=== PATIENT | female | born 1980 | race Caucasian/White ===

== ENCOUNTER 2020-01-14 13:18 | Outpatient (CLI) | payer BC, SELFPAY ==
--- NOTE | ~2020-01-14 | MMUS_ITS ---
EXAMINATION: MM diagnostic linda BI w shivam, US breast BI complete HISTORY: Palpable right axillary lump. TECHNIQUE: Additional 3-D tomosynthesis images of the breasts were performed and synthetic 2-D images were generated. CAD analysis was submitted and interpreted. High resolution complete bilateral breas t and bilateral axillary ultrasound was performed. COMPARISON: None BREAST PARENCHYMAL COMPOSITION: The breasts are heterogenously dense, which may obscure small masses. FINDINGS: MAMMOGRAPHIC FINDINGS: There are no suspicious masses, calcifications or architectural distortion in either breast to sugges t malignancy. ULTRASOUND: Complete bilateral breast and axillary ultrasound: There are abnormally enlarged right axillary lymph nodes with effacement of the fatty hilum the largest lymph node measures 4.6 x 3.8 x 3 cm. Bilateral breast ultrasound is within normal limits without focal mass. IMPRESSION: 1. Abnormal enlarged right axillary lymph nodes with effaced fatty hilum. Findings suspicious for mal ignancy. Cannot exclude lymphoma. 2. Ultrasound-guided right axillary lymph node biopsy recommended. BI-RADS category 4, suspicious findings. Reviewed, dictated and finalized at location A. RVISOR DRYING IMPRESSION: 1. Abnormal enlarged right axillary lymph nodes with effaced fatty hilum. Findi ngs suspicious for malignancy. Cannot exclude lymphoma. 2. Ultrasound-guided right axillary lymph node biopsy recommended. BI-RADS category 4, suspicious findings.
== END 2020-01-14 13:19 | disposition home or self-care (01) ==
LOC: ANHIMG 13:21
PROVIDERS: PCP Family Medicine Adolescent Medicine; Visit Provider Obstetrics & Gynecology Gynecology
DX: R92.8 Other abnormal and inconclusive findings on diagnostic imaging of breast (principal)
CPT/HCPCS: 76641; 77062; 77066; G0279

== ENCOUNTER 2020-01-19 11:12 | Outpatient (CLI) | payer BC, SELFPAY ==
--- NOTE | ~2020-01-19 | US_ITS ---
EXAMINATION: US biopsy lymph node DATE: 01/19/2020 12:02 INDICATION: Enlarged right axillary lymph node TECHNIQUE: The procedure including the risks and benefits was discussed with the patient. Risks discu ssed included bleeding and infection. The patient understood the risks and agreed to proceed. The sk in overlying the right axilla was prepped and draped in usual sterile fashion. Anesthetic was admini stered with 1% lidocaine subcutaneously. An 14 gauge core biopsy needle was advanced under continuou s ultrasound observation to the lesion of interest. 6 core biopsy specimens were obtained, 2 placed in formalin and 4 in HPMI media. The needle was removed and the entry site was cleaned and dressed. Post procedure ultrasound demonstrated no hemorrhage. FINDINGS: Ultrasound images demonstrate a 3.9 x 3.4 x 3.0 cm hypoechoic lymph node at the right axill a. Subsequent images dense biopsy needle advanced into the lymph node. IMPRESSION: 1. Successful Ultrasound-guided biopsy of a 3.9 cm right axillary lymph node. Reviewed, dictated and finalized at location A. OWNER OPERATOR
== END 2020-01-19 11:13 | disposition home or self-care (01) ==
LOC: ANHIMG 11:14
PROVIDERS: PCP Family Medicine Adolescent Medicine; Visit Provider Surgery
DX: R93.89 Abnormal findings on diagnostic imaging of other specified body structures (principal); R59.0 Localized enlarged lymph nodes; C77.9 Secondary and unspecified malignant neoplasm of lymph node, unspecified
CPT/HCPCS: 38505; 76942; 88305; 88342; 88365

== ENCOUNTER 2020-01-25 14:48 | Outpatient (CLI) | payer BC, SELFPAY ==
[2020-01-25 15:00] LABS: Basophils Percent Auto 0.2 % (0.2-1.2); Eosinophils Absolute Auto 0.1 K/mm3 (0-0.3); Eosinophils Percent Auto 0.5 % (0-4.4); Hematocrit 35.7 % (37.0-47.0); Hemoglobin 11.7 g/dL (12.0-15.0); Immature Granulocyte Absolute 0.05 K/mm3 (0.00-0.031); Immature Granulocyte Percent A 0.4 % (0-0.5); Lymphocytes Absolute Auto 2.49 K/mm3 (0.9-3.2); Mean Corpuscular HGB Conc 32.8 g/dl (32-36); Mean Corpuscular Hemoglobin 28.9 pg (26-34); Mean Corpuscular Volume 88.1 fl (80-100); Mean Platelet Volume 10.3 fl (7.4-10.4); Monocytes Absolute Auto 0.5 K/mm3 (0.1-0.6); Monocytes Percent Auto 3.4 % (2.6-8.5); Neutrophils Percent Auto 76.5 % (45.5-73.1); Platelet Count Result 361 k/mm3 (150-375); Red Blood Count 4.05 M/mm3 (4.2-5.4); Red Cell Distribution Width 12.7 % (11.5-14.5); White Blood Count 13.1 K/mm3 (4.5-10.0)
[2020-01-25 16:43] LABS: Alanine Aminotransferase 18 U/L (4-35); Albumin Level 4.8 g/dL (3.5-5.1); Alkaline Phosphatase 87 U/L (38-126); Anion Gap 11 mmol/L (8-16); Aspartate Amino Transferase 23 U/L (14-36); Bilirubin,Total 0.3 mg/dL (0.2-1.3); Blood Urea Nitrogen 11 mg/dL (7-17); Calcium 10.4 mg/dL (8.4-10.2); Carbon Dioxide 27 mmol/L (22-30); Chloride 104 mmol/L (98-107); Estimated Glomerular Filt Rate > 60; Glucose 112 mg/dL (65-105); Sodium 142 mmol/L (137-145)
[2020-02-01 06:58] LABS: CA 15-3 23 U/mL (<32)
== END 2020-01-25 14:49 | disposition home or self-care (01) ==
LOC: ANHLAB 14:50
PROVIDERS: PCP Family Medicine Adolescent Medicine; Visit Provider Internal Medicine Hematology & Oncology
DX: C50.911 Malignant neoplasm of unspecified site of right female breast (principal); Z17.0 Estrogen receptor positive status [ER+]
CPT/HCPCS: 36415; 80053; 85025; 86300

== ENCOUNTER 2020-02-18 06:57 | Outpatient (NON) | payer BC, SELFPAY ==
[2020-02-18 18:46] LABS: SARS-CoV-2 RNA PCR Negative
== END 2020-02-18 06:58 ==
LOC: ANHCOVIDDT 07:09
DX: C79.81 Secondary malignant neoplasm of breast (principal); Z20.828 Contact with and (suspected) exposure to other viral communicable diseases
CPT/HCPCS: 87635; C9803; U0003

== ENCOUNTER 2020-02-23 08:35 | Outpatient (CLI) | payer BC, SELFPAY ==
--- NOTE | 2020-02-23 | ECHO_ITS ---
Patient Info Name: Raven Blood Age: 39 years : 1980 Gender: Female Ht: 64 in Wt: 149 lbs BSA: 1.76 m2 HR: 73 bpm BP: 124 / 84 mmHg Heart Rhythm: Sinus Rhythm Technical Quality: Good Exam Date: 02/23/2020 9:18 AM Exam Location: [facility] Pulmonary Patient Status: Outpatient Admit Date: 02/23/2020 Staff Ordering Physician: Francis Rosado MD [employer]ident Responder: Gavin Mathias RDCS Attending Provider: Francis Rosado MD Referring Physician: Ashlee RIZO; Exam Type: CA echo doppler color flow Study Info Indications C50.911 - Malignant neoplasm of unspecified site of right female breast Complete two-dimensional, color flow and Doppler transthoracic echocardiogram is performed. Strain analysis performed. Summary 1. Complete two-dimensional, color flow and Doppler transthoracic echocardiogram is performed. 2. Strain analysis performed. 3. Left ventricular chamber dimension is normal. 4. Left ventricular systolic function is normal, estimated at 60-65%. 5. There is no increased left ventricular wall thickness. 6. Left ventricular septal wall motion is normal. 7. The left ventricular diastolic function is normal. 8. Global longitudinal strain is normal at -19 %. 9. There is mild tricuspid valve regurgitation. Left Ventricle Left ventricular chamber dimension is normal. Left ventricular systolic function is normal, estimated at 60-65%. There is no increased left ventricular wall thickness. Left ventricular septal wall motion is normal. The left ventricular diastolic function is normal. Global longitudinal strain is normal at -19 %. Right Ventricle Right ventricular chamber dimension is normal. Right ventricular systolic function is normal. Left Atria Left atrial chamber dimension is normal. Right Atria Right atrial chamber dimension is normal. Atrial Septum Intact interatrial septum visualized by color flow imaging. Aortic Valve The aortic valve is trileaflet. There is mild aortic valve sclerosis. There is no aortic valve stenosis. There is trace aortic valve regurgitation. Pulmonic Valve The pulmonic valve is normal. There is no pulmonic valve stenosis. There is trace pulmonic regurgitation. Mitral Valve The mitral valve has normal leaflets. There is no mitral valve stenosis. There is trace mitral valve regurgitation. Tricuspid Valve The tricuspid valve leaflets are normal. There is no significant tricuspid valve stenosis. There is mild tricuspid valve regurgitation. Pericardium/Pleural The pericardium appears normal. There is no pericardial effusion. Inferior Vena Cava Normal inferior vena cava with <50% collapse upon inspiration consistent with elevated right atrial pressure, 10 mmHg. Aorta The aortic root size at the sinus of Valsalva is normal. The prox ascending aorta size is normal. Left Ventricular Outflow Tract Name Value Normal LVOT 2D LVOT Diameter 2.0 cm LVOT Doppler LVOT Peak Gradient 3 mmHg LVOT Mean Gradient 2 mmHg LVOT VTI 20 cm
== END 2020-02-23 08:36 | disposition home or self-care (01) ==
PROVIDERS: PCP Family Medicine Adolescent Medicine; Visit Provider Internal Medicine Hematology & Oncology
DX: C50.911 Malignant neoplasm of unspecified site of right female breast (principal); Z17.0 Estrogen receptor positive status [ER+]
CPT/HCPCS: 93306

== ENCOUNTER 2020-03-27 12:33 | Outpatient (NON) | payer BC, SELFPAY ==
[2020-03-27 21:25] LABS: SARS-CoV-2 RNA PCR Positive
== END 2020-03-27 12:34 ==
LOC: ANHCOVIDDT 12:34
PROVIDERS: PCP Family Medicine Adolescent Medicine; Visit Provider Family Medicine Adolescent Medicine
DX: U07.1 COVID-19 (principal)
CPT/HCPCS: C9803; U0003; U0005

== ENCOUNTER → 2020-07-22 06:38 | Outpatient (CLI) | payer BC, SELFPAY ==
[2020-07-22 23:32] LABS: SARS-CoV-2 RNA PCR Negative
== END ==
PROVIDERS: PCP Family Medicine Adolescent Medicine
DX: C50.811 Malignant neoplasm of overlapping sites of right female breast (principal); Z17.0 Estrogen receptor positive status [ER+]; R68.89 Other general symptoms and signs; Z20.822 Contact with and (suspected) exposure to COVID-19
CPT/HCPCS: C9803; U0003; U0005

== ENCOUNTER → 2020-09-28 11:57 | Outpatient (CLI) | payer BC, SELFPAY ==
--- NOTE | ~2020-09-28 | XR_ITS ---
EXAMINATION: XR abdomen/kub 1V EXAM DATE: 09/28/2020 12:37 INDICATION: Left flank pain. TECHNIQUE: Frontal projection(s) of the abdomen for interpretation. There is no prior study for percy quintanilla. FINDINGS: There is a stone projecting over the left renal pelvis measuring about 8 mm. There is exp ected amount of colonic stool and gas. No small bowel dilation, nonobstructive bowel gas pattern. Mild lumbar levoscoliosis. IMPRESSION: Left nephrolithiasis projecting over renal pelvis. Reviewed, dictated and finalized at location A.
== END ==
PROVIDERS: Visit Provider Nurse Practitioner Family
DX: N20.0 Calculus of kidney (principal)
CPT/HCPCS: 74018

== ENCOUNTER 2020-10-09 11:15 | Emergency (ER) | payer BC, SELFPAY ==
[2020-10-09 11:25] VITALS: BP 134/74; PULSE 106; RESP 16; TEMP 36.3; O2SAT 100
--- NOTE | 2020-10-09 11:42 | ED.URI ---
HPI - URI/Sore Throat General Chief Complaint: Upper Respiratory Infection Stated Complaint: Sore throat Time Seen by Provider: 10/09/20 11:43 Source: patient and RN notes reviewed Mode of arrival: ambulatory Limitations: no limitations History of Present Illness HPI Narrative: 40-year-old female presents with concern for sore throat, rhinorrhea for 3 days. She denies fever, chills, headache, body aches, nasal congestion. Reports occasional cough. Reports she is currently undergoing radiation treatment for breast cancer and was told that sore throat could be a side effect. Reports she has been taking DayQuil and NyQuil with some relief MD elicited complaint: sore throat Related Data Home Medications Medication Instructions Recorded Confirmed cholecalciferol (vitamin D3) 250 250 mcg PO WEEKLY 01/17/20 10/09/20 mcg (10,000 unit) capsule Allergies Allergy/AdvReac Type Severity Reaction Status Date / Time codeine Allergy Severe NAUSEA Verified 10/09/20 11:51 Penicillins AdvReac Intermediate LEGS NUMB Verified 10/09/20 11:51 Review of Systems Review of Systems: CONSTITUTIONAL: Denies malaise, chills, sweats, or fever. EYES: Denies visual changes, redness, or discharge. ENT: Denies congestion, sinus pain, otalgia. Reports rhinorrhea and and sore throat. CARDIOVASCULAR: Denies chest pain, palpitations, or edema. RESPIRATORY: Reports occasional cough. Denies dyspnea. GASTROINTESTINAL: Denies abdominal pain, nausea, vomiting, diarrhea SKIN: Denies rash or itching. MUSCULOSKELETAL: Denies myalgia. NEUROLOGIC: Denies headache. All systems reviewed & are unremarkable except as noted in HPI and below PMFSH Past Medical History Medical History (Updated 10/09/20 @ 11:58 by Jayla Ni NP) History of cervical cancer Hypertension Surgical History Surgical History History of delivery History of hysterectomy Family History Family History (Updated 02/16/20 @ 10:52 by Flakito Lockhart MD) Father Malignant neoplasm of prostate Hypertension Other Carcinoma of colon Maternal Uncle Other Breast cancer Paternal Aunt Grandparent Pancreatic cancer Social History Social History (Updated 01/18/20 @ 09:22 by Elli Coughlin [facility]) Smoking status: Never smoker Alcohol intake: current Alcohol use details: rare Substance use: unknown Additional occupation/education comments: Teacher Gender identity (if verbalized by the patient): Female Spiritual care concerns: No Comments At time of signature, agree with nursing past medical, surgical, social and family history. There is no relevant family history pertinent to the presenting complaint Exam Narrative: GENERAL: Well-appearing, well-nourished, and in no acute distress. HEAD: Normocephalic EYES: PERRLA, conjunctivae clear ENT: Nares clear, clear discharge. Mucous membranes moist. TM pearly thomson with sharp light reflex bilaterally; no tragal tenderness. Oropharynx not erythematous without lesions. Tonsils not enlarged and without exudate, no drooling, no hoarseness, no trismus, uvula midline. NECK: Supple. No lymphadenopathy CHEST: Clear to auscultation, breath sounds equal. No wheezing, rhonchi, rales, or stridor. No respiratory distress, speaks in full sentences. HEART: Regular rate and rhythm. No murmur heard. SKIN: Warm, dry, no rash. NEURO: Alert and oriented x3. PSYCH: Normal mood and affect Course Course Emergency Course: Patient is aware of diagnosis, understands and agrees to treatment plan. Anticipatory guidance given. Patient agrees to follow-up as directed and is aware of reasons to seek care at the emergency department. Portions of this record may have been created with voice recognition software Vital Signs Vital signs: Vital Signs Temperature 97.3 F L 10/09/20 11:25 Pulse Rate 106 H 10/09/20 11:25 Respiratory Rate 16 10/09/20 11:25
== END 2020-10-09 12:08 | disposition home or self-care (01) ==
PROVIDERS: Emergency Provider Nurse Practitioner; PCP Family Medicine Adolescent Medicine
DX: J02.9 Acute pharyngitis, unspecified (principal); I10 Essential (primary) hypertension; Z85.41 Personal history of malignant neoplasm of cervix uteri
CPT/HCPCS: 87081; 87880; 99213; G0463

== ENCOUNTER 2020-10-10 07:35 | Outpatient (CLI) | payer BC, SELFPAY ==
[2020-10-10 08:14] LABS: Prothrombin Time 12.6 Seconds (11.1-14.7)
[2020-10-10 08:15] LABS: Partial Thromboplastin Time 27.7 SECONDS (22.3-36.8)
== END 2020-10-10 07:36 | disposition home or self-care (01) ==
PROVIDERS: PCP Family Medicine Adolescent Medicine; Visit Provider Urology
DX: Z01.812 Encounter for preprocedural laboratory examination (principal); N20.0 Calculus of kidney
CPT/HCPCS: 36415; 85610; 85730; 87086; 87088

== ENCOUNTER 2020-10-20 01:57 | Day surgery (SDC) | payer BC, SELFPAY ==
[2020-10-09 14:48] VITALS: BMI 28.8
[2020-10-20] VITALS (8 sets, daily range): BP systolic 124–142; BP diastolic 57–79; PULSE 80–114; RESP 10–20; TEMP 36.9–37.4; O2SAT 99–100
--- NOTE | ~2020-10-20 | XR_ITS ---
XR abdomen/kub 1V DATE: 10/20/2020 06:46 INDICATION: Left renal pelvic stone TECHNIQUE: AP projection, 2 views COMPARISON: 09/28/2020 KUB FINDINGS: Again noted is an 8 mm calcification overlying the left renal pelvis. A pinpoint calcificat ion overlies the lower pole left kidney suggesting a very small nonobstructing lower pole left renal calculus. The psoas shadows are intact. No visceromegaly is evident. There is a prominent of fecal material wit hin the colon but no bowel obstruction is detected. Included skeletal structures are unremarkable other than levoscoliosis of the thoracolumbar spine. IMPRESSION: 8 mm calcified left renal pelvic calculus Pinpoint nonobstructing lower pole left renal calculus Reviewed, dictated and finalized at Location A. Reviewed, dictated and finalized at location A.
--- NOTE | 2020-10-20 06:17 | WPDHPUPDATE1 ---
History and Physical Update Update Date/Time: 10/20/20 06:17 History and Physical has been reviewed, including an updated exam of the patient. There are NO changes in the patient's condition. Risks, benefits, and alternatives have been discussed and questions answered. Patient agrees to proceed with procedure.
--- NOTE | 2020-10-20 07:21 | WPDANESEPP ---
Anes - Eval Pre Procedure Procedure: Operation Date: 10/20/20 08:30 Proposed Procedures p Left Renal Extracorporeal Shock Wave Lithotripsy, Possible Left Stent Placement - Fam Kaiser MD Date/Time: 10/20/20 07:21 Pre Op Diagnosis: Left Renal Stone Patient Data Age: 40 Gender: F Height: 1.63 m Weight: 76 kg Allergies Allergy/AdvReac Type Severity Reaction Status Date / Time codeine Allergy Severe NAUSEA Verified 10/20/20 07:16 Penicillins AdvReac Intermediate LEGS NUMB Verified 10/20/20 07:16 Home Medications Medication Instructions Recorded Confirmed Type cholecalciferol (vitamin D3) 250 250 mcg PO WEEKLY 01/17/20 10/20/20 History mcg (10,000 unit) capsule tamoxifen 20 mg PO DAILY 10/20/20 10/20/20 History Patient hx anesthesia problems: post op nausea/vomiting Family hx anesthesia problems: none PMFSH Past Medical History Medical History History of cervical cancer Hypertension Surgical History Surgical History History of delivery History of hysterectomy Family History Family History Father Malignant neoplasm of prostate Hypertension Other Carcinoma of colon Maternal Uncle Other Breast cancer Paternal Aunt Grandparent Pancreatic cancer Social History Social History (Updated 01/18/20 @ 09:22 by Elli Coughlin [facility]) Smoking status: Never smoker Alcohol intake: never Alcohol use details: rare Substance use: never Living arrangements: with family Additional occupation/education comments: Teacher Gender identity (if verbalized by the patient): Female Spiritual care concerns: No Exam Day of Procedure 10/20/20 07:21 Patient weight: overweight Heart: regular rate and rhythm Lungs: clear to auscultation and normal air movement Airway: Mallampati scale class II Neurological: alert and oriented Other findings: PONV
--- NOTE | 2020-10-20 07:36 | WPDANESEFPP ---
Anes - Eval Final PreProcedure Day of Procedure 10/20/20 07:36 Patient weight: overweight Heart: regular rate and rhythm Lungs: clear to auscultation Airway: Mallampati scale class II Neurological: alert and oriented Last oral intake: >/= 8 hours ASA classification: III Emergent: no Anesthetic plan: proceed Anesthesia type and monitoring: general LMA and standard monitoring Informed Consent: The patient's anesthetic plan and its attendant risks and benefits were discussed with the patient/family/POA. Questions were solicited and answers provided to the satisfaction of the patient/family/POA.
[2020-10-20] MEDS: ceFAZolin 2 GM/D5W 50 ML 2 GM/50 ML BAG IVPB (07:50)
--- NOTE | 2020-10-20 08:12 | W.PM.PROC2 ---
Procedure Note - Detailed Date of Procedure 10/20/20 Pre-op Diagnosis Left Renal Stone Post-op Diagnosis same Procedure Performed Left ESWL Surgeon Fam Kaiser MD Anesthesia general Description of Procedure The patient was brought to the operative suite where she was placed in the supine position on the Dornier lithotripsy table. The focal point of the lithotripter was placed at a 8mm left renal calculus. A total of 2500 shocks were delivered at a power setting of 4. There appeared to be good fragmentation of the stone. The patient tolerated the procedure well and was taken to the recovery room in good condition. Estimated Blood Loss 0 Drains No Packing No Pathology none sent Complications No immediate complications Condition stable Disposition PACU
[2020-10-20] MEDS: LACTATED RINGERS 1,000 ML 30 ML IV CONT (08:19)
== END 2020-10-20 10:15 | disposition home or self-care (01) ==
PROVIDERS: PCP Family Medicine Adolescent Medicine; Visit Provider Urology
PROC: (CPT 50590; principal; 2020-10-20 08:30)
DX: N20.0 Calculus of kidney (principal); I10 Essential (primary) hypertension
CPT/HCPCS: 50590; 36415; 74018; 85610; 85730; 87086; 87088; A9270; J0131; J0690; J1100; J2250; J2405; J2704; J3010; J7120

== ENCOUNTER → 2020-11-03 13:18 | Outpatient (CLI) | payer BC, SELFPAY ==
--- NOTE | ~2020-11-03 | XR_ITS ---
XR abdomen/kub 1V DATE: 11/03/2020 13:56 INDICATION: Left flank pain TECHNIQUE: AP projection, 2 views COMPARISON: 10/20/2020 KUB FINDINGS: No urinary tract calcification is evident. The psoas shadows are intact. No visceromegaly i s detected. There is no evidence of bowel obstruction. IMPRESSION: No significant abnormality Reviewed, dictated and finalized at Location A. Reviewed, dictated and finalized at location A. IMPRESSION: No significant abnormality
== END ==
PROVIDERS: PCP Family Medicine Adolescent Medicine; Visit Provider Nurse Practitioner Family
DX: R10.9 Unspecified abdominal pain (principal)
CPT/HCPCS: 74018

== ENCOUNTER → 2020-11-25 00:19 | Outpatient (CLI) | payer BC, SELFPAY ==
[2020-11-25 18:09] LABS: SARS-CoV-2 RNA PCR Negative
== END ==
PROVIDERS: PCP Family Medicine Adolescent Medicine
DX: Z20.822 Contact with and (suspected) exposure to COVID-19 (principal)
CPT/HCPCS: C9803; U0003; U0005

== ENCOUNTER 2021-01-22 01:49 | Day surgery (SDC) | payer BC, SELFPAY ==
[2021-01-17 15:21] VITALS: BMI 26.1
--- NOTE | 2021-01-17 15:29 | PC.NURSE ---
Report to the Outpatient Waiting Room, entrance under the green pavilion located off [facility], at time 0600 on date 01/22/21. OR Time: 0730. - You and your visitor will be asked a series of questions to screen for COVID 19 for your protection. - A mask is required within the hospital. - Only one visitor is allowed at this time. Patient visitors will be guided where to wait when not with patient. Preoperative COVID Testing Requirements: No COVID Test needed if: (proof is required; if not received patient will have Rapid Test prior to entry) - Patient has received COVID Vaccine at least 14 days prior to procedure date or - Patient has positive COVID test result within last 90 days of surgery date. COVID Test needed if above criteria is not met If not COVID vaccinated a COVID test must be conducted within 72 hours of surgery and patient is asked to isolate self from time of testing until procedure. You will go to the [facility] for your COVID testing. The [facility] is located at the corner of [address] [facility]. You will only be called if COVID results are positive and your surgeon may reschedule your elective surgery date. Patients may have clear liquids (water, carbonated beverages, clear teas, apple juice) until 3 hours prior to surgery with a maximum of 20 ounces. - No food from midnight until time of surgery - Infants may have breast milk until 4 hours before surgery, infant formula 6 hours prior to surgery. - Children will be allowed to drink immediately following surgery. If applicable, please bring a bottle or sippy cup to assist with drinking. Juice, water, soda, and popsicles are readily available. For infants on formula, please bring formula the day of surgery. Pacifiers are allowed. Take the following medications with a SIP of water the morning of surgery: N/A Medications to discontinue per physician: ASPIRIN PER DR. RANGEL, VITAMINS/SUPPLEMENTS 01/18/21 Please no make-up, nail bengali, hairspray, perfume, deodorant, or body powder the day of surgery. No jewelry (including any body piercings) or valuables the day of surgery, leave them at home. Please take a shower or bath the night before, or the morning of, surgery with an antibacterial soap. Wear comfortable, loose fitting clothing. Children are encouraged to wear pajamas. - Jewelry must be removed prior to entering the operating room. Rings and piercings that are not removed may be cut off. - The hospital will not accept responsibility for valuables. - Please leave all valuables, including medications, at home the day of surgery. If you are going home after surgery, a licensed belly dump driver must drive you home. - NO public transportation without another adult. - We recommend that an adult stay with you for 24 hours following discharge. - We also recommend that you do not drive, make important decision, drink alcoholic beverages, or take any drugs that were not prescribed by your health care provider for at least 24 hours after your discharge time. For Pediatric surgeries, we recommend two adults accompany the child home (only one inside the building at this time). Follow any additional instructions given to you from your surgeon. Telephone instructions given to CARLOS HORTON and asked if any additional questions and then verbalized understanding. Patient advised to call surgeon office or pre surgery nurse liaison [phone] if any additional questions.
[2021-01-22] VITALS (9 sets, daily range): BP systolic 118–144; BP diastolic 59–73; PULSE 88–118; RESP 12–20; TEMP 36.6–36.9; O2SAT 99–100
--- NOTE | 2021-01-22 06:01 | ECG_ITS ---
Measurements Intervals [place] Rate: 105 P: 64 CO: 121 QRS: 13 QRSD: 74 T: 12 QT: 343 QTc: 455 Interpretive Statements SINUS TACHYCARDIA NONSPECIFIC ST & T-WAVE ABNORMALITY- DIFFUSE LEADS BASELINE ARTIFACT- I, II, AVR, AVF ABNORMAL ECG Electronically Signed On 01-22-2021 8:48:08 MILK BOTTLER by Jorge Kemp D.O.
[2021-01-22] MEDS: ACETAMINOPHEN 500 MG TABLET 1000 MG PO (06:53)
[2021-01-22] MEDS: SCOPOLAMINE 1.5 MG PATCH TRANSDERM (06:55)
[2021-01-22] MEDS: KETOROLAC 15 MG/ML VIAL (*BKC) IV PUSH (07:05)
[2021-01-22] MEDS: LACTATED RINGERS 1,000 ML 30 ML IV CONT ×2 (07:07→08:27)
--- NOTE | 2021-01-22 07:14 | WPDHPUPDATE1 ---
History and Physical Update Update Date/Time: 01/22/21 07:14 History and Physical has been reviewed, including an updated exam of the patient. There are NO changes in the patient's condition. Risks, benefits, and alternatives have been discussed and questions answered. Patient agrees to proceed with procedure.
--- NOTE | 2021-01-22 07:15 | P.HP_ITS ---
History of Present Illness History of Present Illness Consent: Risks, benefits, and alternatives have been discussed and questions answered. Patient agrees to proceed with procedure. Chief complaint: prophylactic removal of ovaries Narrative: Raven Blood is a 40 year old female here for bilateral oophorectomy. Patient has diagnosis of stage IIIC breast cancer and oncology has requested bilateral oophorectomy. Risks of infection, bleeding injury to internal organs (bowel, bladder, ureters), need to perform open exploratory, as well as the long-term affects of having her ovaries removed were reviewed with the patient. She voices understanding and agrees to proceed. 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 squamous carcinoma s/p LEEP and cone 2010 and [facility] 2010 Hypertension Surgical History Surgical History (Updated 01/22/21 @ 07:20 by Jaleesa Rivera MD) History of delivery x2 History of hysterectomy [facility] 2016 S/P mastectomy, bilateral 07/28 Family History Family History Father Malignant neoplasm of prostate Hypertension Other Carcinoma of colon Maternal Uncle Other Breast cancer Paternal Aunt Grandparent Pancreatic cancer Social History Social History (Updated 01/18/20 @ 09:22 by Elli Coughlin [facility]) Smoking status: Never smoker Alcohol intake: never Alcohol use details: rare Substance use: never Substance use type: does not use Living arrangements: with family Additional occupation/education comments: Teacher Gender identity (if verbalized by the patient): Female Spiritual care concerns: No Meds Home Medications and Allergies Home Medications Medication Instructions Recorded Confirmed Type cholecalciferol (vitamin D3) 250 250 mcg PO WEEKLY 01/17/20 01/17/21 History mcg (10,000 unit) capsule aspirin [Baby Aspirin] 81 mg PO DAILY 01/17/21 01/17/21 History lisinopril 10 mg PO DAILY 01/17/21 01/17/21 History Allergies Allergy/AdvReac Type Severity Reaction Status Date / Time codeine AdvReac Severe NAUSEA Verified 01/22/21 06:40 Penicillins AdvReac Intermediate LEGS NUMB Verified 01/17/21 15:19 Exam Const: General: healthy appearing and alert Orientation/consciousness: patient oriented x3 Resp: Effort & Inspection: normal respiratory effort Auscultation: clear to auscultation bilaterally Cardio: Rate: regular rate Rhythm: regular rhythm GI: GI Palp: Yes Soft to palpation, No Tenderness to palpation present (GI) and No Palpable mass present : External Female Exam: normal external appearance Speculum Exam - Vagina: normal appearance of the vagina and normal vaginal discharge Bimanual Exam- Adnexa, other: normal adnexae and No adnexal tenderness Neuro: General: patient oriented x3 Assessment and Plan Assessment and plan (1) Breast CA: Code(s): C50.919 - Malignant neoplasm of unspecified site of unspecified female breast Status: Acute Assessment and Plan: Plan to proceed with bilateral oophorectomy
--- NOTE | 2021-01-22 08:24 | W.PM.PROC2 ---
Procedure Note - Detailed Date of Procedure 01/22/21 Pre-op Diagnosis prophylactic removal of ovaries Post-op Diagnosis same Procedure Performed Laparoscopic bilateral oophorectomy Surgeon Jaleesa Rivera MD Anesthesia general Findings Normal-appearing bilateral ovaries; omental adhesions to the mid lower abdominal wall Description of Procedure The patient was taken to the operating room and placed under anesthesia in the dorsal lithotomy position. She was prepped and draped in the usual sterile fashion. Sponge stick was placed in the vagina and the bladder was previously drained by the OR staff. A vertical skin incision is made at the base of the umbilicus. The abdomen is tented and the Veress needle placed with an opening patient pressure of 4mmHg. Water drop test was normal and pneumoperitoneum was obtained to a patient pressure of 15. The Veress needle was removed and the 5mm Optiview trocars placed. Intra-abdominal placement was confirmed with the laparoscope. The patient is placed in Trendelenburg and the 5mm trocar placed 2cm above the symphysis pubis under direct visualization. Blunt probe was used to evaluate the pelvis and both ovaries are able to be mobilized. The 12mm trocar is placed in the left lower quadrant. The Endo GI stapler was used to clamp the infundibulopelvic ligament on the left. The pedicle was cut and the ovary released. Good hemostasis is noted the stapler was re-loaded and to firings were required for the right ovary. One additional piece of scar tissue was cauterized and cut using Metzenbaum. This freed the right ovary. The endobag was placed through the 12mm trocar and both ovaries are placed in the back. The incision had to be extended approximately 1cm to allow removal of the ovaries. Trocars are removed and pneumoperitoneum was reduced. The fascial incision is closed in the 12mm trocar port with 0 Vicryl. The skin incisions are closed using 4-0 nylon in an interrupted fashion. Vaginal instrument was removed and the patient awakened from anesthesia. She was taken to recovery in stable condition. Sponge, needle, and instrument counts are correct per the OR staff. Estimated Blood Loss 5 Drains No Packing No Pathology yes (Bilateral ovaries) Complications No immediate complications Condition stable Disposition PACU
[2021-01-22] MEDS: ONDANSETRON INJ 4 MG/2 ML VIAL IV PUSH (09:57)
== END 2021-01-22 11:00 | disposition home or self-care (01) ==
PROVIDERS: PCP Family Medicine Adolescent Medicine; Visit Provider Obstetrics & Gynecology Gynecology
PROC: (CPT 49320; principal; 2021-01-22 07:30)
DX: Z40.02 Encounter for prophylactic removal of ovary(s) (principal); C50.919 Malignant neoplasm of unspecified site of unspecified female breast; N83.10 Corpus luteum cyst of ovary, unspecified side; N83.00 Follicular cyst of ovary, unspecified side; J45.909 Unspecified asthma, uncomplicated; I10 Essential (primary) hypertension; Z85.41 Personal history of malignant neoplasm of cervix uteri; Z79.82 Long term (current) use of aspirin; R00.0 Tachycardia, unspecified
CPT/HCPCS: 58661; 88305; 93005; A9270; J1100; J1170; J1885; J2250; J2405; J2704; J2710; J3010; J7030; J7120

== ENCOUNTER → 2021-06-04 11:13 | Outpatient (CLI) | payer BC, SELFPAY ==
--- NOTE | ~2021-06-04 | XR_ITS ---
XR abdomen/kub 1V DATE: 06/04/2021 11:39 INDICATION: Left flank pain TECHNIQUE: Supine AP views COMPARISON: 11/03/2020 KUB FINDINGS: The psoas shadows are intact. No visceromegaly. No significant abnormal calcification. There is a moderate amount of fecal material in colon but no evidence of bowel obstruction. Mild levoscoliosis of the lower thoracic and lumbar spine. IMPRESSION: Nonspecific abdomen Reviewed, dictated and finalized at [facility] Reviewed, dictated and finalized at [facility]. IMPRESSION: Nonspecific abdomen
== END ==
PROVIDERS: PCP Urology; Visit Provider Urology
DX: R10.9 Unspecified abdominal pain (principal); M41.9 Scoliosis, unspecified
CPT/HCPCS: 74018

== ENCOUNTER 2021-08-17 14:41 | Emergency (ER) | payer BC, SELFPAY ==
[2021-08-17 14:51] VITALS: BP 111/72; PULSE 116; RESP 18; TEMP 37.1; O2SAT 100
--- NOTE | 2021-08-17 15:02 | ED.FEMALEGU ---
HPI - Female Genitourinary General Chief complaint: Urogenital-Female Stated complaint: uti complaint Time Seen by Provider: 08/17/21 14:55 Source: patient Mode of arrival: ambulatory Limitations: no limitations History of Present Illness HPI Narrative: Ms. Blood is a 40-year-old female patient presenting to the clinic today with complaints of possible UTI. She reports that she is having some right-sided flank pain. She denies any burning frequency urgency with urination however she just had some blood work done and her provider told her that her white count was elevated and her kidney function was a little elevated so she is concerned about a kidney infection. She denies any fever or chills. She denies any known exposure to anybody with COVID, flu, or strep. Related Data Home Medications Medication Instructions Recorded Confirmed lisinopril 10 mg tablet 10 mg PO DAILY 01/17/21 01/22/21 anastrozole 1 mg tablet tablet 08/17/21 Allergies Allergy/AdvReac Type Severity Reaction Status Date / Time codeine AdvReac Severe NAUSEA Verified 08/17/21 15:02 Penicillins AdvReac Intermediate LEGS NUMB Verified 08/17/21 15:02 Review of Systems Review of Systems: Pertinent positives per HPI. Patient denies any fever, chills, rash, headache, visual changes, dizziness, cough, runny nose, sore throat, shortness of breath, chest pain, palpitations, nausea, vomiting, diarrhea, constipation, abdominal pain, or any urinary issues. [facility] Past Medical History Medical History Asthma, exercise induced History of cervical cancer Ia1 squamous carcinoma s/p LEEP and cone 2010 and [facility] 2010 Hypertension Surgical History Surgical History History of delivery x2 History of hysterectomy [facility] 2016 S/P mastectomy, bilateral 07/28 Family History Family History Father Malignant neoplasm of prostate Hypertension Other Carcinoma of colon Maternal Uncle Other Breast cancer Paternal Aunt Grandparent Pancreatic cancer Social History Social History (Reviewed 08/17/21 @ 15:15 by Salvador Huff APRNKp Smoking status: Never smoker Alcohol intake: never Alcohol use details: rare Substance use: never Substance use type: does not use Additional occupation/education comments: Teacher Gender identity (if verbalized by the patient): Female Spiritual care concerns: No Comments At the time of my signature, I reviewed and agree with the nursing past medical, surgical, social, and family history. There is no relevant family history pertinent to the patient complaint. Exam Narrative: General: Well-developed, well nourished, in no apparent distress. Head: Normocephalic, atraumatic. Cardio: Regular rate and rhythm, s1 and s2 normal, no murmur appreciated. Resp: Clear to auscultation bilaterally, no rhonchi, rales, wheezing or rubs. Abdomen: Soft, pliable, bowel sounds present in all quadrants, non-tender to palpation, no organomegly, positive left CVAT tenderness. Course Course Emergency Course: Portions of this record may have been created with voice recognition software. Level of Care: Express Care Visit Vital Signs Vital signs: Vital Signs Temperature 37.1 C 08/17/21 14:51 Pulse Rate 116 H 08/17/21 14:51 Respiratory Rate 18 08/17/21 14:51 Blood Pressure 111/72 08/17/21 14:51 Pulse Oximetry 100 08/17/21 14:51 Oxygen Delivery Room Air 08/17/21 14:51 Temperature 37.1 C 08/17/21 14:51 Pulse Rate 116 H 08/17/21 14:51 Respiratory Rate 18 08/17/21 14:51 Blood Pressure 111/72 08/17/21 14:51 Pulse Oximetry 100 08/17/21 14:51 Oxygen Delivery Room Air 08/17/21 14:51 Vital signs reviewed MDM - Female Genitourinary MDM Narrative Medical decision making tara
== END 2021-08-17 15:08 | disposition home or self-care (01) ==
PROVIDERS: Emergency Provider Nurse Practitioner Family; PCP Family Medicine Adolescent Medicine
DX: R10.9 Unspecified abdominal pain (principal); J45.990 Exercise induced bronchospasm; I10 Essential (primary) hypertension; Z85.41 Personal history of malignant neoplasm of cervix uteri
CPT/HCPCS: 81003; 87086; 87088; 99213; G0463

== ENCOUNTER 2022-01-15 01:07 | Day surgery (SDC) | payer BC, SELFPAY ==
[2022-01-03 11:12] VITALS: BMI 28.0
[2022-01-15 06:59] VITALS: BP 136/85; PULSE 97; RESP 18; TEMP 36.1; O2SAT 100; BMI 28.4
--- NOTE | 2022-01-15 07:05 | WPDANESEPPF ---
Anes - Initial Pre Proc Eval Procedure: Operation Date: 01/15/22 08:00 Proposed Procedures p Screening Colonoscopy - Sotero Mcneal MD Date/Time: 01/15/22 07:05 Surgeon: Sotero Mcneal MD Pre Op Diagnosis: lorenzo screen; fam hx colon ca, pers hx breast cancer Patient Data Age: 41 Gender: F Height: 1.63 m Weight: 75.1 kg Last Vital Signs Temp 36.1 C L 01/15/22 06:59 Pulse 97 01/15/22 06:59 Resp 18 01/15/22 06:59 BP 136/85 01/15/22 06:59 Pulse Ox 100 01/15/22 06:59 O2 Del Method Room Air 01/15/22 06:59 Allergies Allergy/AdvReac Type Severity Reaction Status Date / Time codeine AdvReac Severe NAUSEA Verified 01/15/22 06:58 Penicillins AdvReac Intermediate LEGS NUMB Verified 01/15/22 06:58 Home Medications Medication Instructions Recorded Confirmed Type lisinopril 10 mg tablet 10 mg PO DAILY 01/17/21 01/03/22 History anastrozole 1 mg tablet 1 mg PO DAILY 08/17/21 01/03/22 History atorvastatin 20 mg tablet 20 mg PO DAILY #90 tabs 11/29/21 01/03/22 Rx sodium,potassium,mag sulfates 17.5 See Rx Instructions PO .COMPLEX 12/04/21 01/15/22 Rx gram-3.13 gram-1.6 gram oral soln #354 mL (Suprep Bowel Prep Kit) aspirin 81 mg tablet 81 mg PO DAILY 01/03/22 01/03/22 History glucosamine-chondroitin 250 mg-200 2 tablet PO TID 01/03/22 01/03/22 History mg tablet (Osteo Bi-Flex) multivitamin with minerals-folic 1 tablet PO DAILY 01/03/22 01/03/22 History acid 0.4 mg tablet omega-3 fatty acids-vitamin E 1 cap PO DAILY 01/03/22 01/03/22 History 1,000 mg capsule Patient hx anesthesia problems: post op nausea/vomiting Family hx anesthesia problems: none Results Review: All pre-operative results and documents have been reviewed as part of the pre-operative evaluation. [facility] Past Medical History Medical History Abnormal findings on imaging test Asthma, exercise induced Breast CA Breast calcification, right COVID-19 Enlarged lymph nodes in armpit History of cervical cancer Ia1 squamous carcinoma s/p LEEP and cone 2010 and [facility]- 2010 Hypertension Mixed hyperlipidemia Surgical History Surgical History History of delivery x2 History of hysterectomy [facility] 2016 S/P mastectomy, bilateral 07/28 Family History Family History Father Malignant neoplasm of prostate Hypertension Other Carcinoma of colon Maternal Uncle Other Breast cancer Paternal Aunt Grandparent Pancreatic cancer Social History Social History Smoking status: Never smoker Second hand tobacco smoke exposure: No Alcohol intake: never Alcohol use details: rare Substance use: never Substance use type: does not use Living arrangements: with family Additional occupation/education comments: Teacher Gender identity (if verbalized by the patient): Female Sexual Orientation (if Verbalized by the Patient): Straight or Heterosexual Spiritual care concerns: No Agree to blood products: Yes Anes - Eval Final PreProcedure Day of Procedure 01/15/22 07:05 Patient weight: overweight Heart: regular rate and rhythm Lungs: clear to auscultation Airway: Mallampati scale class II Neurological: alert and oriented Last oral intake: >/= 8 hours ASA classification: III Emergent: no Anesthetic plan: proceed Anesthesia type and monitoring: general GIVS and standard monitoring Results Review: All pre-operative results and documents have been reviewed as part of the pre-operative evaluation. Informed Consent: The patient's anesthetic plan and its attendant risks and benefits were discussed with the patient/family/POA. Questions were solicited and answers provided to the satisfaction of the patient/family/POA.
[2022-01-15] MEDS: LACTATED RINGERS 1,000 ML 150 ML IV CONT (07:13)
--- NOTE | 2022-01-15 07:53 | PM.HPGS ---
History of Present Illness History of Present Illness Consent: Risks, benefits, and alternatives have been discussed and questions answered. Patient agrees to proceed with procedure. Chief complaint: lorenzo screen; fam hx colon ca, pers hx breast cancer Narrative: Raven Blood is a 41 year old female Presents for screening colonoscopy. Patient has a personal history of breast carcinoma for which she has had bilateral mastectomy. She states that her mother and father both have had colon polyps. An uncle has had colon cancer a maternal grandmother had pancreatic cancer. Patient presents today for screening exam. She states her current weight appetite and bowel movements are normal. She denies any blood in her stools. Review of Systems Review of Systems: Review of systems noncontributory. [facility] Past Medical History Medical History Abnormal findings on imaging test Asthma, exercise induced Breast CA Breast calcification, right COVID-19 Enlarged lymph nodes in armpit History of cervical cancer Ia1 squamous carcinoma s/p LEEP and cone 2010 and [facility]- 2010 Hypertension Mixed hyperlipidemia Surgical History Surgical History History of delivery x2 History of hysterectomy [facility]- 2016 S/P mastectomy, bilateral 07/28 Family History Family History Father Malignant neoplasm of prostate Hypertension Other Carcinoma of colon Maternal Uncle Other Breast cancer Paternal Aunt Grandparent Pancreatic cancer Social History Social History Smoking status: Never smoker Second hand tobacco smoke exposure: No Alcohol intake: never Alcohol use details: rare Substance use: never Substance use type: does not use Living arrangements: with family Additional occupation/education comments: Teacher Gender identity (if verbalized by the patient): Female Sexual Orientation (if Verbalized by the Patient): Straight or Heterosexual Spiritual care concerns: No Agree to blood products: Yes Meds Home Medications and Allergies Home Medications Medication Instructions Recorded Confirmed Type lisinopril 10 mg tablet 10 mg PO DAILY 01/17/21 01/03/22 History anastrozole 1 mg tablet 1 mg PO DAILY 08/17/21 01/03/22 History atorvastatin 20 mg tablet 20 mg PO DAILY #90 tabs 11/29/21 01/03/22 Rx sodium,potassium,mag sulfates 17.5 See Rx Instructions PO .COMPLEX 12/04/21 01/15/22 Rx gram-3.13 gram-1.6 gram oral soln #354 mL (Suprep Bowel Prep Kit) aspirin 81 mg tablet 81 mg PO DAILY 01/03/22 01/03/22 History glucosamine-chondroitin 250 mg-200 2 tablet PO TID 01/03/22 01/03/22 History mg tablet (Osteo Bi-Flex) multivitamin with minerals-folic 1 tablet PO DAILY 01/03/22 01/03/22 History acid 0.4 mg tablet omega-3 fatty acids-vitamin E 1 cap PO DAILY 01/03/22 01/03/22 History 1,000 mg capsule Allergies Allergy/AdvReac Type Severity Reaction Status Date / Time codeine AdvReac Severe NAUSEA Verified 01/15/22 06:58 Penicillins AdvReac Intermediate LEGS NUMB Verified 01/15/22 06:58 Vital Signs Vital Signs - 24 hr 01/15/22 06:59 Temperature 97 F L Pulse Rate 97 Respiratory Rate 18 Blood Pressure 136/85 Pulse Oximetry 100 Oxygen Delivery Room Air Exam Narrative: Physical exam reveals patient be alert. Vital signs stable. HEENT exam is unremarkable. Patient is anicteric. Lungs are clear to auscultation and percussion. Heart is without murmur or extra sounds. Abdomen bowel sounds are present soft nontender with no organomegaly. Digital external rectal exam is normal. Assessment and Plan Assessment and plan (1) Family history of colonic polyps: Code(s): Z83.71 - Family history of colonic polyps Status: Acute
[2022-01-15 08:23] VITALS: BP 102/78; PULSE 80; RESP 20; O2SAT 100
[2022-01-15 08:33] VITALS: BP 119/75; PULSE 74; RESP 14; O2SAT 100
[2022-01-15 08:43] VITALS: BP 124/67; PULSE 69; RESP 16; O2SAT 100
== END 2022-01-15 08:46 | disposition home or self-care (01) ==
PROVIDERS: PCP Family Medicine Adolescent Medicine; Visit Provider Internal Medicine Gastroenterology
PROC: 0DJD8ZZ Inspection of Lower Intestinal Tract, Via Natural or Artificial Opening Endoscopic (ICD-10-PCS; CPT 45378; principal; 2022-01-15 08:00)
DX: Z12.11 Encounter for screening for malignant neoplasm of colon (principal); K64.8 Other hemorrhoids; Z83.71 Family history of colonic polyps; Z80.0 Family history of malignant neoplasm of digestive organs; I10 Essential (primary) hypertension; E78.2 Mixed hyperlipidemia; Z85.3 Personal history of malignant neoplasm of breast; Z79.82 Long term (current) use of aspirin; Z79.811 Long term (current) use of aromatase inhibitors; Z85.41 Personal history of malignant neoplasm of cervix uteri; Z90.13 Acquired absence of bilateral breasts and nipples
CPT/HCPCS: 45378; J2704; J7120

== ENCOUNTER 2022-03-02 09:06 | Emergency (ER) | payer BC, SELFPAY ==
--- NOTE | 2022-03-02 09:12 | ED.URI ---
HPI - URI/Sore Throat General Chief Complaint: Upper Respiratory Infection Stated Complaint: Sore Throat Time Seen by Provider: 03/02/22 09:20 Source: patient and RN notes reviewed Mode of arrival: ambulatory Limitations: no limitations History of Present Illness HPI Narrative: 41-year-old female presents concern for sore throat, fever. She reports some mild nasal drainage. Reports symptoms started 3 days ago, she has lost her voice this morning. Reports her child had strep throat last week. She reports painful swallowing. MD elicited complaint: fever and sore throat Related Data Home Medications Medication Instructions Recorded Confirmed lisinopril 10 mg tablet 10 mg PO DAILY 01/17/21 03/02/22 anastrozole 1 mg tablet 1 mg PO DAILY 08/17/21 03/02/22 aspirin 81 mg tablet 81 mg PO DAILY 01/03/22 03/02/22 glucosamine-chondroitin 250 mg-200 2 tablet PO TID 01/03/22 03/02/22 mg tablet (Osteo Bi-Flex) multivitamin with minerals-folic 1 tablet PO DAILY 01/03/22 03/02/22 acid 0.4 mg tablet omega-3 fatty acids-vitamin E 1 cap PO DAILY 01/03/22 03/02/22 1,000 mg capsule Allergies Allergy/AdvReac Type Severity Reaction Status Date / Time codeine AdvReac Severe NAUSEA Verified 03/02/22 09:15 Penicillins AdvReac Intermediate LEGS NUMB Verified 03/02/22 09:15 Review of Systems Review of Systems: CONSTITUTIONAL: Reports malaise, fever. EYES: Denies visual changes, redness, or discharge. ENT: Reports rhinorrhea, sore throat. It has been congestion, sinus pain, otalgia CARDIOVASCULAR: Denies chest pain, palpitations, or edema. RESPIRATORY: Reports occasional cough. Denies dyspnea. GASTROINTESTINAL: Denies abdominal pain, nausea, vomiting, diarrhea SKIN: Denies rash or itching. MUSCULOSKELETAL: Denies myalgia. NEUROLOGIC: Denies headache. All systems reviewed & are unremarkable except as noted in HPI and below PMFSH Past Medical History Medical History Abnormal findings on imaging test Asthma, exercise induced Breast CA Breast calcification, right COVID-19 Enlarged lymph nodes in armpit History of cervical cancer Ia1 squamous carcinoma s/p LEEP and cone 2010 and [facility] 2010 Hypertension Mixed hyperlipidemia Surgical History Surgical History History of delivery x2 History of hysterectomy [facility] 2016 S/P mastectomy, bilateral 07/28 Family History Family History Father Malignant neoplasm of prostate Hypertension Other Carcinoma of colon Maternal Uncle Other Breast cancer Paternal Aunt Grandparent Pancreatic cancer Social History Social History Smoking status: Never smoker Second hand tobacco smoke exposure: No Alcohol intake: never Alcohol use details: rare Substance use: never Substance use type: does not use Additional occupation/education comments: Teacher Gender identity (if verbalized by the patient): Female Sexual Orientation (if Verbalized by the Patient): Straight or Heterosexual Spiritual care concerns: No Agree to blood products: Yes Comments At time of signature, agree with nursing past medical, surgical, social and family history. There is no relevant family history pertinent to the presenting complaint Exam Narrative: GENERAL: Well-appearing, well-nourished, and in no acute distress. HEAD: Normocephalic EYES: PERRLA, conjunctivae clear ENT: Nares clear. Mucous membranes moist. TM pearly thomson with sharp light reflex bilaterally; no tragal tenderness. Oropharynx erythematous without lesions. Tonsils not enlarged and without exudate, no drooling, no hoarseness, no trismus, uvula midline. NECK: Supple. No lymphadenopathy CHEST: Clear to auscultation, breath sounds equal. No wheezing, rhonchi, rales, or stridor.
[2022-03-02 09:15] VITALS: BP 145/87; PULSE 124; RESP 18; TEMP 36.8; O2SAT 100
[2022-03-02 09:18] VITALS: BP 145/87; PULSE 124; RESP 18; TEMP 36.8; O2SAT 100
== END 2022-03-02 09:34 | disposition home or self-care (01) ==
PROVIDERS: Emergency Provider Nurse Practitioner; PCP Family Medicine Adolescent Medicine
DX: J02.9 Acute pharyngitis, unspecified (principal); I10 Essential (primary) hypertension; E78.2 Mixed hyperlipidemia; Z79.82 Long term (current) use of aspirin; Z85.3 Personal history of malignant neoplasm of breast
CPT/HCPCS: 87081; 99213; G0463

== ENCOUNTER → 2022-03-18 10:17 | Outpatient (CLI) | payer BC, SELFPAY ==
--- NOTE | ~2022-03-18 | DEXA_ITS ---
Bone Density Report Name: CARLOS HORTON Age: 41 Sex: Female Ethnicity: White Date of : 1980 Indication: postmenopausal; hysterectomy; Referring Provider: Francis Rosado Study: Bone densitometry was performed. Exam Date: March 18, 2022 Accession number: [id number] Bone Density: Region BMD T-score Z-score Classification AP Spine (L1-L4) 0.906 -1.3 -1.0 Osteopenia Femoral Neck (Left) 0.534 -2.8 -2.5 Osteoporosis Total Hip (Left) 0.739 -1.7 -1.5 Osteopenia Femoral Neck (Right) 0.622 -2.0 -1.7 Osteopenia Total Hip (Right) 0.846 -0.8 -0.6 Normal Total Hip Mean 0.793 -1.3 -1.1 Osteopenia World Health Organization criteria for BMD impression classify patients as: Normal (T-score at or above -1.0), Osteopenia (T-score between -1.0 and -2.5), or Osteoporosis (T-score at or below -2.5). 10-year Fracture Risk: FRAX not reported because: Some T-score for Spine Total or Hip Total or Femoral Neck at or below -2.5 Clinical Information Provided by Patient: Has used the following medications: Vitamin D, Anastrozole, MTV Has the following medical conditions: Hysterectomy, cervical cancer 2010, breast cancer 2019 Patient maximum height was 64 Menopause Age: 34 No regular weight bearing exercise Drinks caffeinated beverages Onset of menses at age 13 Number of children 2 Impression: The patient has osteoporosis, based on the Left Femoral Neck T-score. Discussion: HIGH RISK OF FRACTURE. BONE DENSITY IS UNDESIRABLY LOW AT ONE OR MORE SKELETAL SITES, CONSISTENT WITH OSTEOPOROSIS. ALSO, BONE DENSITY IS LOWER THAN EXPECTED FOR AGE AND SEX AT ONE OR MORE SKELETAL SITES; RECOMMEND A DILIGENT SEARCH FOR SECONDARY CAUSES OF BONE LOSS. This patient's lowest T-score meets the World Health Organization's (WHO) criteria for osteoporosis at one or more sites (T-score -2.5 or below). In untreated patients, the risk of osteoporotic fracture increases approximately two-fold for each 1.0 SD decrease in T-score. Low bone density is not the only risk factor for fracture; also consider factors such as patient's age, frailty or poor health, risk of falling, risk of injury, previous osteoporotic fracture, family history of osteoporosis, cigarette smoking, low body weight, etc. Not everyone with low bone mineral density has osteoporosis; osteomalacia and other metabolic bone disorders should also be considered. Patients who have osteoporosis should be evaluated for specific diseases and conditions (secondary causes) that may cause or contribute to bone loss. The [place] Association of Clinical Endocrinologists (AACE) and National Osteoporosis Foundation (NOF) recommend pharmacologic intervention for all postmenopausal women whose T-score is in this range. Also, this patient's bone mineral density is below the range considered normal for he
== END ==
PROVIDERS: PCP Family Medicine Adolescent Medicine; Visit Provider Internal Medicine Hematology & Oncology
DX: M85.89 Other specified disorders of bone density and structure, multiple sites (principal); M81.0 Age-related osteoporosis without current pathological fracture
CPT/HCPCS: 77080

== ENCOUNTER → 2022-08-09 07:53 | Outpatient (CLI) | payer BC, SELFPAY ==
--- NOTE | ~2022-08-09 | US_ITS ---
Limited Abdominal Sonogram: Real-time sonographic imaging of the right upper quadrant was performed. Clinical History: Abnormal serum enzymes Findings: The visualized liver appears echogenic, with no evidence of mass lesion or bile duct dilat ation. Main portal vein demonstrates normal direction of flow. The gallbladder is well distended, and appears normal with no evidence of gallstone or wall thickening. The common bile duct measures 5 mm. The pancreas, aorta, and IVC are obscured by bowel gas shadowing. Right kidney measures 11.8 cm in length, without evidence for hydronephrosis. Impression: Diffuse fatty infiltration of the liver. Reviewed, dictated and finalized at location . Impression: Diffuse fatty infiltration of the liver.
== END ==
PROVIDERS: PCP Nurse Practitioner Family; Visit Provider Nurse Practitioner Family
DX: R74.8 Abnormal levels of other serum enzymes (principal); K76.0 Fatty (change of) liver, not elsewhere classified
CPT/HCPCS: 76705

== ENCOUNTER 2022-12-24 19:15 | Emergency (ER) | payer BC, SELFPAY ==
--- NOTE | 2022-12-24 19:21 | ED.URI ---
HPI - URI/Sore Throat General Chief Complaint: Upper Respiratory Infection Stated Complaint: Cough,Congestion,Sore Throat Time Seen by Provider: 12/24/22 19:21 Source: patient, RN notes reviewed and old records reviewed Mode of arrival: ambulatory Limitations: no limitations History of Present Illness HPI Narrative: 42-year-old female presents to [facility] with complaints of cough, congestion and sore throat for 7 days Denies any other symptoms. Has been taking DayQuil and NyQuil. Reports son was positive for strep last week Related Data Home Medications Medication Instructions Recorded Confirmed anastrozole 1 mg tablet 1 mg PO DAILY 08/17/21 12/24/22 aspirin 81 mg tablet 81 mg PO DAILY 01/03/22 12/24/22 glucosamine-chondroitin 250 mg-200 2 tablet PO TID 01/03/22 12/24/22 mg tablet (Osteo Bi-Flex) multivitamin with minerals-folic 1 tablet PO DAILY 01/03/22 12/24/22 acid 0.4 mg tablet omega-3 fatty acids-vitamin E 1 cap PO DAILY 01/03/22 12/24/22 1,000 mg capsule Allergies Allergy/AdvReac Type Severity Reaction Status Date / Time codeine AdvReac Severe NAUSEA Verified 12/24/22 19:22 Penicillins AdvReac Intermediate LEGS NUMB Verified 12/24/22 19:22 Review of Systems Review of Systems: All systems reviewed & are unremarkable except as noted in HPI and below Constitutional: Constitutional: Reports no additional constitutional complaints Eyes: Eyes: Reports no additional eye complaints ENT: Reports as per HPI and Reports sore throat Cardiovascular: Cardiovascular: Reports no additional cardiovascular complaints, Denies chest pain and Denies dyspnea Respiratory: Respiratory: Reports as per HPI, Denies chest congestion, Reports cough and Denies dyspnea Gastrointestinal: Gastrointestinal: Reports no additional gastrointestinal complaints, Denies abdominal pain, Denies nausea and Denies vomiting Musculoskeletal: Musculoskeletal: Reports no additional musculoskeletal complaints Integumentary/Breasts: Skin/Breast: Reports system reviewed and no additional complaints, except as docu Neurologic: Reports system reviewed and no additional complaints, except as documented Psychiatric: Psychiatric: Reports no additional psychiatric complaints Allergic/Immunologic: Allergic/Immunologic: Reports no additional allergic/immunologic complaints PMFSH Past Medical History Medical History Abnormal findings on imaging test Asthma, exercise induced Breast CA Breast calcification, right COVID-19 Enlarged lymph nodes in armpit History of cervical cancer Ia1 squamous carcinoma s/p LEEP and cone 2010 and [facility]-BS 2010 Hypertension Mixed hyperlipidemia Surgical History Surgical History History of delivery x2 History of hysterectomy [facility] 2016 S/P mastectomy, bilateral 07/28 Family History Family History Father Malignant neoplasm of prostate Hypertension Other Carcinoma of colon Maternal Uncle Other Breast cancer Paternal Aunt Grandparent Pancreatic cancer Social History Social History Smoking status: Never smoker Second hand tobacco smoke exposure: No Alcohol intake: never Alcohol use details: rare Substance use: never Substance use type: does not use Lack of Transportation: No Lack of Food: Never True Current Housing: I Have Housing Concerned About Future Housing: No Difficulty Paying Gas/Electric Bills: No Difficulty Paying for Meds: No Currently Unemployed: No Education: Master's Degree or Higher Difficulty w/ Childcare or Family Care: No Living arrangements: with family Occupation/Education: occupation Additional occupation/education comments: Teacher Gender identity (if verbalized by the patient): Female Sexual O
[2022-12-24 19:23] VITALS: BP 136/84; PULSE 106; RESP 18; TEMP 36.2; O2SAT 100
== END 2022-12-24 19:38 | disposition home or self-care (01) ==
PROVIDERS: Emergency Provider Nurse Practitioner; PCP Family Medicine Adolescent Medicine
DX: J06.9 Acute upper respiratory infection, unspecified (principal); R09.82 Postnasal drip; J45.990 Exercise induced bronchospasm; I10 Essential (primary) hypertension; E78.2 Mixed hyperlipidemia; Z85.3 Personal history of malignant neoplasm of breast; Z85.41 Personal history of malignant neoplasm of cervix uteri; Z90.13 Acquired absence of bilateral breasts and nipples
CPT/HCPCS: 87081; 87880; 99213; G0463

== ENCOUNTER 2023-01-09 15:26 | Emergency (ER) | payer BC, SELFPAY ==
--- NOTE | ~2023-01-09 | XR_ITS ---
EXAMINATION: XR chest 2V DATE: 01/09/2023 15:53 INDICATION: 4 weeks of cough TECHNIQUE: PA and lateral views of the chest were obtained. COMPARISON: Chest radiograph dated 10/29/2017 FINDINGS: The lungs remain clear with no focal airspace opacities, pulmonary edema, pleural effusion or pneumot horax. The cardiomediastinal silhouette is normal. Interval bilateral mastectomies and right axillary lymph node dissection with multiple surgical clips at the right axilla. Mild thoracic dextrocurvatur e. IMPRESSION: 1. No acute cardiopulmonary disease. Reviewed, dictated and finalized at location A.
[2023-01-09 15:36] VITALS: BP 136/74; PULSE 104; RESP 18; TEMP 36.8; O2SAT 99
--- NOTE | 2023-01-09 15:53 | ED.URI ---
HPI - URI/Sore Throat General Chief Complaint: Upper Respiratory Infection Stated Complaint: cough,chest congestion Time Seen by Provider: 01/09/23 15:48 Source: patient, RN notes reviewed and old records reviewed Mode of arrival: ambulatory Limitations: no limitations History of Present Illness HPI Narrative: 42 year old female presents to express care with complaints of cough and chest congestion for the past 4 weeks which continues despite use of OTC medications of Mucinex and Zyrtec. Patient reports that she felt a rattle in her chest today and school nurse recommended she follow up in clinic. Patient reports that she has sore throat which is worse in the evenings, was seen 2 weeks ago and had negative strep test at that time. Patient reports that she has not had a fever or chills and has had some productive mucous greenish yellow with her cough. Patient denies any body aches or headache , no nausea or vomiting has had diarrhea for 3 days. Patient states no acute dyspnea or difficulty with breathing. MD elicited complaint: cough and sore throat Pertinent past history: asthma (exercise induced) Onset (ago): week(s) (4) Consistency: constant Pain scale (0-10): 2 Able to tolerate fluids by mouth: Yes Treatments prior to arrival: other (Mucinex and Zyrtec) Related Data Home Medications Medication Instructions Recorded Confirmed anastrozole 1 mg tablet 1 mg PO DAILY 08/17/21 01/09/23 aspirin 81 mg tablet 81 mg PO DAILY 01/03/22 01/09/23 glucosamine-chondroitin 250 mg-200 2 tablet PO TID 01/03/22 01/09/23 mg tablet (Osteo Bi-Flex) multivitamin with minerals-folic 1 tablet PO DAILY 01/03/22 01/09/23 acid 0.4 mg tablet omega-3 fatty acids-vitamin E 1 cap PO DAILY 01/03/22 01/09/23 1,000 mg capsule Allergies Allergy/AdvReac Type Severity Reaction Status Date / Time codeine AdvReac Severe NAUSEA Verified 01/09/23 15:53 Penicillins AdvReac Intermediate LEGS NUMB Verified 01/09/23 15:53 Review of Systems Review of Systems: CONSTITUTIONAL: Denies malaise, chills, sweats, or fever. EYES: Denies visual changes, redness, or discharge. ENT: Reports rhinorrhea, congestion, sinus pain,no otalgia and positive forsore throat. CARDIOVASCULAR: Denies chest pain, palpitations, or edema. RESPIRATORY: Reports productive cough.? Denies dyspnea. GASTROINTESTINAL: Denies abdominal pain, nausea, vomiting, positive for diarrhea for 3 days. SKIN: Denies rash or itching. MUSCULOSKELETAL: Denies myalgia. NEUROLOGIC: Denies headache. All systems reviewed & are unremarkable except as noted in HPI and below PMFSH Past Medical History Medical History Abnormal findings on imaging test Asthma, exercise induced Breast CA Breast calcification, right COVID-19 Enlarged lymph nodes in armpit History of cervical cancer Ia1 squamous carcinoma s/p LEEP and cone 2010 and [facility]- 2010 Hypertension Mixed hyperlipidemia Surgical History Surgical History History of delivery x2 History of hysterectomy [facility] 2016 S/P mastectomy, bilateral 07/28 Family History Family History Father Malignant neoplasm of prostate Hypertension Other Carcinoma of colon Maternal Uncle Other Breast cancer Paternal Aunt Grandparent Pancreatic cancer Social History Social History Smoking status: Never smoker Second hand tobacco smoke exposure: No Alcohol intake: never Alcohol use details: rare Substance use: never Substance use type: does not use Lack of Transportation: No Lack of Food: Never True Current Housing: I Have Housing Concerned About Future Housing: No Difficulty Paying Gas/Electric Bills: No Difficulty Paying for Meds: No Currently Unemployed: No Education: [employer]
== END 2023-01-09 16:16 | disposition home or self-care (01) ==
PROVIDERS: Emergency Provider Registered Nurse; PCP Family Medicine Adolescent Medicine
DX: J40 Bronchitis, not specified as acute or chronic (principal); I10 Essential (primary) hypertension; E78.2 Mixed hyperlipidemia; Z79.899 Other long term (current) drug therapy; Z79.82 Long term (current) use of aspirin; Z85.3 Personal history of malignant neoplasm of breast
CPT/HCPCS: 71046; 99213; G0463

== ENCOUNTER 2023-07-18 15:35 | Emergency (ER) | payer BC, SELFPAY ==
[2023-07-18 15:50] VITALS: BP 165/88; PULSE 106; RESP 20; TEMP 36.1; O2SAT 100
--- NOTE | 2023-07-18 15:52 | ED.FEMALEGU ---
HPI - Female Genitourinary General Chief complaint: Urogenital-Female Stated complaint: uti symptoms Source: patient and RN notes reviewed Mode of arrival: ambulatory Limitations: no limitations History of Present Illness HPI Narrative: 42 y/o female Presented for complaint of right flank pain, burning with urination, dark urine, and upper abdominal cramping. Onset yesterday. Denies hematuria, nausea, vomiting, abdominal pain, constipation, diarrhea, fevers or chills. Reports history of kidney stones. Related Data Home Medications Medication Instructions Recorded Confirmed anastrozole 1 mg tablet 1 mg PO DAILY 08/17/21 07/18/23 aspirin 81 mg tablet 81 mg PO DAILY 01/03/22 07/18/23 glucosamine-chondroitin 250 mg-200 2 tablet PO TID 01/03/22 07/18/23 mg tablet (Osteo Bi-Flex) multivitamin with minerals-folic 1 tablet PO DAILY 01/03/22 07/18/23 acid 0.4 mg tablet omega-3 fatty acids-vitamin E 1 cap PO DAILY 01/03/22 07/18/23 1,000 mg capsule Allergies Allergy/AdvReac Type Severity Reaction Status Date / Time codeine AdvReac Severe NAUSEA Verified 07/18/23 15:53 Penicillins AdvReac Intermediate LEGS NUMB Verified 07/18/23 15:53 Review of Systems Review of Systems: CONSTITUTIONAL: Denies body aches, fever, chills, or sweats. CARDIOVASCULAR: Denies chest pain, palpitations, or edema. RESPIRATORY: Denies cough or dyspnea. GASTROINTESTINAL: Denies abdominal pain, nausea, vomiting, or diarrhea. GENITOURINARY: Reports dysuria, frequency, flank pain, denies urgency, hematuria SKIN: Denies rash, itching, or wounds. MUSCULOSKELETAL: Denies back pain or myalgia. [facility] Past Medical History Medical History Abnormal findings on imaging test Asthma, exercise induced Breast CA Breast calcification, right COVID-19 Enlarged lymph nodes in armpit History of cervical cancer Ia1 squamous carcinoma s/p LEEP and cone 2010 and [facility] Hypertension Mixed hyperlipidemia Surgical History Surgical History History of delivery x2 History of hysterectomy [facility] 2017 S/P mastectomy, bilateral 07/28 Family History Family History Father Malignant neoplasm of prostate Hypertension Other Carcinoma of colon Maternal Uncle Other Breast cancer Paternal Aunt Grandparent Pancreatic cancer Social History Social History Smoking status: Never smoker Second hand tobacco smoke exposure: No Alcohol intake: never Alcohol use details: rare Substance use: never Substance use type: does not use Lack of Transportation: No Lack of Food: Never True Current Housing: I Have Housing Concerned About Future Housing: No Difficulty Paying Gas/Electric Bills: No Difficulty Paying for Meds: No Currently Unemployed: No Education: Master's Degree or Higher Difficulty w/ Childcare or Family Care: No Living arrangements: with family Occupation/Education: occupation Additional occupation/education comments: Teacher Gender identity (if verbalized by the patient): Female Sexual Orientation (if Verbalized by the Patient): Straight or Heterosexual Spiritual care concerns: No Agree to blood products: Yes Comments At time of signature, I have reviewed and agree with nursing past medical, surgical, social and family history unless otherwise noted. Please see nursing chart for further information. There is no relevant family history pertinent to the presenting complaint Exam Narrative: GENERAL: Well-appearing ENT: Mucous membranes pink and moist. NECK: Normal AROM. Supple. CHEST: No respiratory distress. Clear to auscultation. HEART: Regular rate and rhythm. ABDOMEN: Soft, nontender, nondistended, normal active bowel sounds. No CVA tenderne
== END 2023-07-18 16:06 | disposition home or self-care (01) ==
PROVIDERS: Emergency Provider Nurse Practitioner Family; PCP Family Medicine Adolescent Medicine
DX: R30.0 Dysuria (principal); J45.990 Exercise induced bronchospasm; I10 Essential (primary) hypertension; E78.2 Mixed hyperlipidemia; Z85.3 Personal history of malignant neoplasm of breast; Z85.41 Personal history of malignant neoplasm of cervix uteri; Z90.13 Acquired absence of bilateral breasts and nipples; Z79.82 Long term (current) use of aspirin
CPT/HCPCS: 81003; 87086; 87088; 87147; 99213; G0463

== ENCOUNTER 2023-12-02 15:31 | Outpatient (CLI) | payer BC, SELFPAY ==
[2023-12-02 15:42] LABS: Basophils Percent Auto 0.4 % (0.2-1.2); Eosinophils Absolute Auto 0.2 K/mm3 (0-0.3); Eosinophils Percent Auto 2.3 % (0-4.4); Hematocrit 36.1 % (37.0-47.0); Hemoglobin 11.8 g/dL (12.0-15.0); Immature Granulocyte Absolute 0.05 K/mm3 (0.00-0.031); Immature Granulocyte Percent A 0.5 % (0-0.5); Lymphocytes Absolute Auto 3.59 K/mm3 (0.9-3.2); Lymphocytes Percent Auto 34.8 % (18.3-44.2); Mean Corpuscular HGB Conc 32.7 g/dl (32-36); Mean Corpuscular Hemoglobin 29.4 pg (26-34); Mean Corpuscular Volume 89.8 fl (80-100); Mean Platelet Volume 9.6 fl (7.4-10.4); Monocytes Absolute Auto 0.6 K/mm3 (0.1-0.6); Monocytes Percent Auto 5.8 % (2.6-8.5); Neutrophils Absolute Auto 5.8 K/mm3 (1.3-6.7); Neutrophils Percent Auto 56.2 % (45.5-73.1); Platelet Count Result 291 k/mm3 (150-375); Red Blood Count 4.02 M/mm3 (4.2-5.4); Red Cell Distribution Width 13.2 % (11.5-14.5); White Blood Count 10.3 K/mm3 (4.5-10.0)
[2023-12-02 16:46] LABS: Alanine Aminotransferase 34 U/L (6-35); Albumin Level 4.7 g/dL (3.5-5.1); Alkaline Phosphatase 69 U/L (38-126); Anion Gap 11 mmol/L (4-12); Aspartate Amino Transferase 32 U/L (14-36); Bilirubin,Total 0.3 mg/dL (0.2-1.3); Blood Urea Nitrogen 21 mg/dL (7-17); Calcium 9.9 mg/dL (8.4-10.2); Carbon Dioxide 26 mmol/L (22-30); Chloride 99 mmol/L (98-107); Estimated Glomerular Filt Rate > 60; Glucose 96 mg/dL (65-110); Potassium 3.8 mmol/L (3.4-5.0); Sodium 136 mmol/L (137-145)
[2023-12-04 06:59] LABS: CA 15-3 24 U/mL (<32)
== END 2023-12-02 15:32 | disposition home or self-care (01) ==
LOC: ANHLAB 15:33
PROVIDERS: PCP Family Medicine Adolescent Medicine; Visit Provider Internal Medicine Hematology & Oncology
DX: C50.811 Malignant neoplasm of overlapping sites of right female breast (principal); Z17.0 Estrogen receptor positive status [ER+]
CPT/HCPCS: 36415; 80053; 85025; 86300

== ENCOUNTER 2024-01-27 14:57 | Emergency (ER) | payer BC, SELFPAY ==
--- NOTE | 2024-01-27 15:13 | ED_ITS ---
HPI - Female Genitourinary General Chief complaint: Urogenital-Female Stated complaint: uti symptoms Time Seen by Provider: 01/27/24 15:30 Source: patient Mode of arrival: ambulatory Limitations: no limitations History of Present Illness HPI Narrative: Raven is a 43-year-old female patient presenting to the clinic today with complaints of possible urinary tract infection. She reports she is having some upper abdominal discomfort, burning with urination, and urinary frequency. Symptoms started about 3 days ago. Denies any fever, chills, body aches, flank pain, or lower abdominal pain. She denies any vaginal discharge. History of full hysterectomy Related Data Home Medications Medication Instructions Recorded Confirmed anastrozole 1 mg tablet 1 mg PO DAILY 08/17/21 01/27/24 aspirin 81 mg tablet 81 mg PO DAILY 01/03/22 01/27/24 glucosamine-chondroitin 250 mg-200 2 tablet PO TID 01/03/22 01/27/24 mg tablet (Osteo Bi-Flex) multivitamin with minerals-folic 1 tablet PO DAILY 01/03/22 01/27/24 acid 0.4 mg tablet omega-3 fatty acids-vitamin E 1 cap PO DAILY 01/03/22 01/27/24 1,000 mg capsule ergocalciferol (vitamin D2) 1,250 1,250 mcg PO DAILY 01/27/24 01/27/24 mcg (50,000 unit) capsule Allergies Allergy/AdvReac Type Severity Reaction Status Date / Time codeine AdvReac Intermediate Nausea and Verified 01/27/24 15:26 Vomiting Penicillins AdvReac Intermediate LEGS NUMB Verified 01/27/24 15:26 Review of Systems Review of Systems: Pertinent positives per HPI. Patient denies any fever, chills, rash, headache, visual changes, dizziness, cough, runny nose, sore throat, shortness of breath, chest pain, palpitations, nausea, vomiting, diarrhea, constipation PMFSH Past Medical History Medical History (Updated 01/27/24 @ 15:51 by Salvador Huff APRN) Abnormal findings on imaging test Asthma, exercise induced Breast CA Breast calcification, right COVID-19 Enlarged lymph nodes in armpit History of cervical cancer Ia1 squamous carcinoma s/p LEEP and cone 2010 and [facility]-BS 2010 Hypertension Malignant neoplasm of unspecified site of right female breast Mixed hyperlipidemia Surgical History Surgical History History of delivery x2 History of hysterectomy [facility] 2017 S/P mastectomy, bilateral 07/28 Family History Family History Father Malignant neoplasm of prostate Hypertension Other Carcinoma of colon Maternal Uncle Other Breast cancer Paternal Aunt Grandparent Pancreatic cancer Social History Social History Smoking status: Never smoker Second hand tobacco smoke exposure: No Alcohol intake: never Alcohol use details: rare Substance use: never Substance use type: does not use Lack of Transportation: No Lack of Food: Never True Current Housing: I Have Housing Concerned About Future Housing: No Difficulty Paying Gas/Electric Bills: No Difficulty Paying for Meds: No Currently Unemployed: No Education: Master's Degree or Higher Difficulty w/ Childcare or Family Care: No Living arrangements: with family Occupation/Education: occupation Additional occupation/education comments: Teacher Gender identity (if verbalized by the patient): Female Sexual Orientation (if Verbalized by the Patient): Straight or Heterosexual Spiritual care concerns: No Agree to blood products: Yes Comments At the time of my signature, I reviewed and agree with the nursing past medical, surgical, social, and family history. There is no relevant family history pertinent to the patient complaint. Exam Narrative: General: Well-developed, well nourished, in no apparent distress. Head: Normocephalic, atraumatic. Cardio: Regular rate and rhythm, s1 and s2 normal, no murmur appreciated. Resp: Clear to auscultation bilaterally, no rhonchi, rales, wheezing or rubs. Abdomen: Soft, pliable, bowel sounds present in all quadrants, non-tender to palpation, no organomegly, no CVAT tenderness. Course Course Emergency Course: Portions of this record may have been created with voice recognition software. Level of Care: Express Care Visit Vital Signs Vital signs: Vital Signs Temperature 36.6 C 01/27/24 15:21 Pulse Rate 93 01/27/24 15:21 Respiratory Rate 16 01/27/24 15:21 Blood Pressure 111/70 01/27/24 15:21 Pulse Oximetry 100 01/27/24 15:21 Oxygen Delivery Room Air 01/27/24 15:21 Temperature 36.6 C 01/27/24 15:21 Pulse Rate 93 01/27/24 15:21 Respiratory Rate 16 01/27/24 15:21 Blood Pressure 111/70 01/27/24 15:21 Pulse Oximetry 100 01/27/24 15:21 Oxygen Delivery Room Air 01/27/24 15:21 Vital signs reviewed MDM - Female Genitourinary MDM Narrative Medical decision making narrative: At the time of visit patient is resting comfortably on the exam table. Patient appears to be nontoxic. Labs: Urine dip was performed showing leukocytes and blood. Will send urine for culture Plan: I will place patient on Macrobid to treat for acute non complicated UTI. Supportive measures were discussed with the patient and they voiced understanding discharge instructions and agrees to treatment plan. Return precautions reviewed Differential Diagnosis Differential diagnosis: Likely urinary tract infection and cystitis Lab Data Labs: Lab Results 01/27/24 Range/Units 15:27 POC Urine Color Yellow POC Urine Clarity Clear POC Urine pH 5.5 POC Ur Specif [place] 1.020 POC Urine Protein Negative (Negative) POC Ur Glucose (UA) Negative (Negative) POC Urine Ketones Negative (Negative) POC Urine Blood 2+ (Negative) POC Urine Nitrite Negative (Negative) POC Urine Bilirubin Negative (Negative) POC Urine Urobilinogen 0.2 POC U Leukocyte Esteras Trace (Negative) Discharge Plan Discharge Clinical Impression: UTI (urinary tract infection) Patient Disposition: Home, Self-Care Condition: Stable Instructions: Antibiotic Form, Urinary Tract Infection in Women (ED) Additional Instructions: UA is positive for leukocytes and blood Take Macrobid as prescribed Increase fluids and stay well hydrated Wipe front to back. May use wet wipes. Avoid tub baths If sexually active- pee before and after intercourse. Wear cotton panties Avoid tight clothing up against the genitals Follow up with your PCP in 1 week if symptoms persist. Prescriptions: New nitrofurantoin monohyd/m-cryst [Macrobid] 100 mg capsule 100 mg PO Q12H 5 Days Qty: 10 0RF Rx Instructions: must administer with a meal/food No Action anastrozole 1 mg tablet 1 mg PO DAILY ergocalciferol (vitamin D2) 1,250 mcg (50,000 unit) capsule 1,250 mcg PO DAILY Adult Low Dose Aspirin 81 mg Tablet 81 mg PO DAILY Hold Instructions: Patient Condition glucosamine-chondroitin [Osteo Bi-Flex] 250-200 mg Tablet 2 tablet PO TID Rx Instructions: give after food/meal Fish Oil 1,000 mg Capsule 1 cap PO DAILY multivit with min-folic acid [Adult One Daily Multivitamin] 0.4 mg Tablet 1 tablet PO DAILY lisinopril 20 mg tablet 20 mg PO DAILY Qty: 90 2RF Follow-up/Referrals: Dewayne Shaw MD [Primary Care Provider] - Time of Disposition: 15:51 Quality NIHSS Nursing Documentation ED NIHSS nursing documentation: reviewed/agree
[2024-01-27 15:21] VITALS: BP 111/70; PULSE 93; RESP 16; TEMP 36.6; O2SAT 100
[2024-01-27 15:29] LABS: EDUAAPPEAR Clear; EDUABILI Negative (Negative); EDUABLOOD 2+ (Negative); EDUACOLOR1 Yellow; EDUAGLUCOSE Negative (Negative); EDUAKETONE Negative (Negative); EDUALEUKO Trace (Negative); EDUANITRATE Negative (Negative); EDUAPH 5.5; EDUAPROTEIN Negative (Negative); EDUAUROBILI 0.2
== END 2024-01-27 15:54 | disposition home or self-care (01) ==
PROVIDERS: Emergency Provider Nurse Practitioner Family; PCP Family Medicine Adolescent Medicine
DX: N39.0 Urinary tract infection, site not specified (principal); I10 Essential (primary) hypertension; E78.2 Mixed hyperlipidemia; J45.909 Unspecified asthma, uncomplicated; Z85.3 Personal history of malignant neoplasm of breast; Z85.41 Personal history of malignant neoplasm of cervix uteri; Z90.13 Acquired absence of bilateral breasts and nipples; Z86.16 Personal history of COVID-19
CPT/HCPCS: 81003; 87086; 99213; G0463

== ENCOUNTER 2024-04-28 12:35 | Outpatient (CLI) | payer BC, SELFPAY ==
--- NOTE | ~2024-04-28 | DEXA_ITS ---
Bone Density Report Name: CARLOS HORTON Age: 43 Sex: Female Ethnicity: White Date of : 1980 Indication: postmenopausal; cancer; hysterectomy; Referring Provider: REMINGTON MUSE Study: Bone densitometry was performed. Exam Date: April 28, 2024 Accession number: [id number] Bone Density: Region BMD T-score Z-score Classification AP Spine(L1-L4) 0.932 -1.0 -0.7 Normal Femoral Neck (Left) 0.625 -2.0 -1.7 Osteopenia Total Hip (Left) 0.800 -1.2 -0.9 Osteopenia Femoral Neck (Right) 0.666 -1.6 -1.3 Osteopenia Total Hip (Right) 0.873 -0.6 -0.3 Normal Total Hip Mean 0.836 -0.9 -0.6 Normal World Health Organization criteria for BMD impression classify patients as: Normal (T-score at or above -1.0), Osteopenia (T-score between -1.0 and -2.5), or Osteoporosis (T-score at or below -2.5). 10-year Fracture Risk: FRAX not reported because: Treated for osteoporosis Clinical Information Provided by Patient: Is being treated for osteoporosis Has used the following medications: Prolia (i.e. denosumab), Vitamin D Has the following medical conditions: Cancer, Hysterectomy Patient maximum height was 64 Menopause Age: 40 Drinks caffeinated beverages Onset of menses at age 14 Number of children 2 Impression: The patient has low bone mass, based on the Left Femoral Neck T-score. Discussion: It is important to ask patients whether they are taking their medications and to encourage continued and appropriate compliance with their osteoporosis therapies to reduce fracture risk. It is also important to review their risk factors and encourage appropriate calcium and vitamin D intakes, exercise, fall prevention and other lifestyle measures. Follow-Up: Consider a repeat BMD and Vertebral Fracture Assessment (VFA) exam in 2 years or sooner if medically necessary, to reassess this patient's status. Reported by: CARMELO on 04/28/2024 1:21:00 PM. Reviewed, dictated and finalized at location AKia CHAPARRO
--- OUTSIDE RECORDS SUMMARY | 2024-04-28 12:52 | XMS_ITS | Encounter Summary ---
Author Organization [facility] Address [address] [place] [address] Care Team Providers Care Disc Recordist Name Role Phone Dewayne Shaw MD Primary Care Provider [phone] Encounter Details Date Type Department Care Team (Late Contact Info) Description 02/16/2020 Chart Note [facility] Radiation Therapy [address] [place] [address] [place] [address] [place] [address] Social History Tobacco Use Types Packs/Day Years Used Date Smoking Tobacco: Never Smokeless Tobacco: Never Alcohol Use Standard Drinks/Week Comments Yes 0 (1 standard drink = 0.6 oz pur e alcohol) Comments No Sex and Gender Information Value Date Recorded Sex Assigned at Not on file 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 Breast Surgery Haseeb Kimbrough [address] [place] [place] [address] [place] [address] [place] [address] 10/15/2024 8:30 AM CDT Office Visit [facility] Oncology and Hematology - [place] [address] [facility] [address] [place] [address] Francis Rosado MD [address] [facility] [address] [place] [address] documented as of this encounter Visit Diagnoses Not on filedocumented in this encounter Care Teams Disc Recordist Relationship Specialty Start Date End Date Dewayne Shaw MD [address] [facility] [address] [place] [address] PCP - General Family Practice 08/16/20 documented as of this encounter
--- OUTSIDE RECORDS SUMMARY | 2024-04-28 12:52 | XMS_ITS | Clinical Summary ---
Author Organization [address] - [address]22 [address] [place] [address] Phone Care Team Providers Care Clinical Esthetician Name Role Phone Dewayne Shaw MD Primary Care Provider +1- [phone] Allergies Active Allergy Reactions Criticality Noted Date Comments Codeine Nausea and Vomiting High 01/25/2020 Penicillins Other (See Comments) Low 01/25/2020 Makes legs numb Medications ergocalciferol (VITAMIN D2) 50,000 unit capsule TK ONE C PO TWICE PER WK 01/01/2020 Active clobetasoL (TEMOVATE) 0.05 % Cream 07/23/2021 Active ondansetron (Zofran) 8 mg TabletIndication s:Malignant neoplasm of overlapping sites of right breast in female, estrogen receptor positive (CMS/HCC) Take 1 Tablet (8 mg) by mouth every 8 hours as needed for Nausea/Emes is. 90 Tablet 3 09/05/2021 Active aspirin 81 mg Capsule mg, capsule(s), 0 09/03/2022 Active lisinopriL (PRINIVIL) 20 mg tablet Take 20 mg by mouth daily. Active anastrozole (Arimidex) 1 mg tabletIndication s:Malignant neoplasm of overlapping sites of right breast in female, estrogen receptor positive (CMS/HCC) Take 1 Tablet (1 mg) by mouth daily. 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 S/P mastectomy, bilateral 09/14/2020 Malignant neoplasm metastati c to axillary tail of breast with unknown primary site 02/08/2020 Malignant neoplasm of overla pping sites of right breast in female, estrogen receptor positive 01/25/2020 Cancer Staging:Clinical: cT2, cN3c, cM0, GX, ER+, WA+, HER2- - Signed by Raissa Parrish MD on 06/27/2020 Encounters Date Type Department Care Team Description 04/20/2024 3:30 PM GAME FARM SUPERVISOR Office Visit [facility] On[facility] and Hematology - [place] [address] [place] [address] Francis Rosado MD Malignant neoplasm of overlapping sites of right breast in female, estrogen receptor positive (CMS/HCC) (Primary Dx); Encounter for follow-up surveillance of colon cancer 04/12/2024 Orders Only [facility] - [place] [address] [place] [address] Francis Rosado MD 04/09/2024 Orders Only [facility] - [place] [address] [place] [address] Francis Rosado MD 04/07/2024 External Device Data STL ABSTRACTION Provider, Abstract 04/01/2024 External Device Data STL ABSTRACTION Provider, Abstract 03/22/2024 Orders Only [facility] [address] [place] [address] Francis Rosado MD Osteopenia of multiple sites (Primary Dx) 02/10/2024 External Device Data STL ABSTRACTION Provider, Abstract from Last 3 Months Immunizations Immunization Administration Dates Next Due (Perfect Commerce)(12 YR UP) COVID-19 VACCINE - EMERGENCY USE AUTHORIZATION, MRNA, [id number](PF) 30 MCG/0.3 ML IM SUSP 08/17/2020,07/15/2020 Family History Medical History Relation Name Comments Hypertension Father Gavin Wilson Prostate Cancer Father Gavin Wilson Colon Cancer Maternal Uncle Hypertension Mother Maxine Zachary-Seka Pancreatic Cancer Paternal Grandmother Breast Cancer Paternal Uncle Relation Name Status Comments Father Gavin Wilson Maternal Uncle Mother Maxine Ivy Paternal Grandmother Paternal Uncle Social History Tobacco Use Types Packs/Day Years Used Date Smoking Tobacco: Never Smokeless Tobacco: Never Tobacco Cessation:Counseling Given: Not Answered Alcohol Use Standard Drinks/Week Comments Never 0 (1 standard drink = 0.6 oz pur e alcohol) Feeling Safe Answer Date Recorded Fear of Current or Ex-Partner Not on file Emotionally Abused Not on file 09/30/2023 Within the last year, have y ou been kicked, hit, slapped, or otherwise physically hurt by your partner or ex-partner? No 09/30/2023 Sexually Abused Not on file 09/30/2023 Comments No Sex and Gender Information Value Date Recorded Sex Assigned at Not on file Legal Sex Female 6:10 AM GAME FARM SUPERVISOR Gender Identity Not on file Sexual Orientation Not on file Last Filed Vital Signs Vital Sign Reading Time Taken Comments Blood Pressure 154/89 04/20/2024 3:16 PM GAME FARM SUPERVISOR Pulse 112 04/20/2024 3:16 PM GAME FARM SUPERVISOR Temperature 36.3 C (97.3 F) 04/20/2024 3:16 PM GAME FARM SUPERVISOR Respiratory Rate 14 04/20/2024 3:16 PM GAME FARM SUPERVISOR Oxygen Saturation 99% 04/20/2024 3:16 PM GAME FARM SUPERVISOR Inhaled Oxygen Concentration - - Weight 82.6 kg (182 lb) 04/20/2024 3:16 PM GAME FARM SUPERVISOR Height 162.6 cm (5' 4 ) 09/30/2023 8:06 AM CDT Body Mass Index 31.24 09/30/2023 8:06 AM CDT Plan of Treatment Upcoming Encounters Date Type Department Care Team (Late st Contact Info) Description 09/30/2024 8:00 AM CDT Office Visit [facility] Breast Surgery [address] [place] [address] [place] [address] [address] [place] [address] 10/15/2024 8:30 AM CDT Office Visit [facility] [place] [facility] [address] [place] [address] Francis Rosado MD [address] [facility] [address] [place] [address] Health Maintenance Due Date Last Done Comments Pre-Diabetes and Diabetes Screening 1981 DTAP/TDAP/TD VACCINES (1 - Tdap) 2000 HEPATITIS B VACCINES (1 of 3 - 19+ 3-dose series) 2000 CERVICAL CANCER SCREENING 09/29/2011 COVID-19 Vaccine (3 - Pfizer risk series) 09/14/2020 08/17/2020, 07/15/2020 BREAST CANCER SCREENING 2021 INFLUENZA VACCINE (#1) 2023 Preventative Visit- Commercial 03/10/2024 HPV VACCINES Aged Out No longer eligi ble based on patient's age to complete this topic Medical Devices Implanted Type Area Acds Block 1 Operator Device Identifier Shelf Expiration Date Model / Serial / Lot Aircraft Delivery Checker Clip Surgiclip Ii Joshua 9.75in [id number] - [id number] Implanted:Qty: 1 on 07/26/2020 by Raissa Parrish MD at [facility] Clip N/A: Breast [employer] - COVIDIEN 02/06/2025 [id number] / / [id number] Description:Used bilaterally Aircraft Delivery Checker Clip Surgiclip Ii Joshua 9.75in [id number] - [id number] Implanted:Qty: 1 on 07/26/2020 by Raissa Parrish MD at [facility] Clip Right: Breast [employer] - COVIDIEN 11/07/2024 [id number] / / [id number] Hemostatic Surgicel 4x8in 1950 - [id number] Implanted:Qty: 4 on 07/26/2020 by Raissa Parrish MD at [facility] Hemostatic N/A: Breast [employer]- [employer] 08/07/20241951 / / [id number] Description:Used in bilatera l breast Hemostatic Surgicel 4x8in 1950 - [id number] Implanted:Qty: 1 on 07/26/2020 by Raissa Parrish MD at [facility] Hemostatic Right: Breast [employer]- [employer] 10/08/20232 / / [id number] Explanted Type Area Acds Block 1 Operator Device Identifier Shelf Expiration Date Model / Serial / Lot Port Powerport Comfort 8fr Mri [id number] - [id number] Implanted:Qty: 1 on 02/23/2020 by Raissa Parrish MD at [facility] Explanted:Qty: 1 on 11/29/2020 by Raissa Parrish MD at [facility] Port Left: Chest CR BARD- KIYA VASC [employer] 02/06/2021 [id number] / / [id number] Procedures Procedure Name Priority Date/Time Associated Diagnosis Comments CBC WITH AUTODIFFERENTIAL Routine 2024 1:53 PM GAME FARM SUPERVISOR CANCER ANTIGEN 15-3 Routine 04/09/2024 9 :45 AM GAME FARM SUPERVISOR COMPREHENSIVE METABOLIC PANEL Routine 04/09/2024 9:02 AM GAME FARM SUPERVISOR from Last 3 Months Results * CBC WITH AUTODIFFERENTIAL (04/09/2024 1:53 PM GAME FARM SUPERVISOR) Blood us Francis Rosado MD HEMATOLOGY ORDERABLES Final Res ult * CANCER ANTIGEN 15-3 (04/09/2024 9:45 AM GAME FARM SUPERVISOR) Blood us Francis Rosado MD CHEMISTRY ORDERABLES Final Resu lt * COMPREHENSIVE METABOLIC PANEL (04/09/2024 9:02 AM GAME FARM SUPERVISOR) Blood us Francis Rosado MD CHEMISTRY ORDERABLES Final Resu lt from Last 3 Months Insurance [facility] BLUE ACCESS CHOICE [facility] BLUE ACCESS CHOICE Advance Directives For more information, please contact: [phone] * Full Code (Latest Code Status on File) Date Activated Date Inactivated Comments 07/26/2020 1:07 PM 07/27/2020 11:27 AM Care Teams Clinical Esthetician Relationship Specialty Start Date End Date Dewayne Shaw MD [address] [place] [address] PCP - General Family Practice 08/16/20
== END 2024-04-28 12:36 | disposition home or self-care (01) ==
LOC: ANHIMG 12:48
PROVIDERS: PCP Family Medicine Adolescent Medicine; Visit Provider Internal Medicine Hematology & Oncology
DX: M85.89 Other specified disorders of bone density and structure, multiple sites (principal)
CPT/HCPCS: 77080

== ENCOUNTER 2024-07-08 00:50 | Day surgery (SDC) | payer BC, SELFPAY ==
--- OUTSIDE RECORDS SUMMARY | 2024-07-08 00:53 | XMS_ITS | Encounter Summary ---
Author Organization [facility] Address [address] [place] [address] Care Team Providers Care Puppet Maker Name Role Phone Dewayne Shaw MD Primary Care Provider +1- [phone] Encounter Details Date Type Department Care Team (Late Contact Info) Description 02/16/2020 Chart Note [facility] Radiation Therapy [address] [place] [address] [place] [address] [place] [address] Social History Tobacco Use Types Packs/Day Years Used Date Smoking Tobacco: Never Smokeless Tobacco: Never Alcohol Use Standard Drinks/Week Comments Yes 0 (1 standard drink = 0.6 oz pur e alcohol) Comments No Sex and Gender Information Value Date Recorded Sex Assigned at Not on file Legal Sex Female 6:10 AM CUTTER HELPER Gender Identity Not on file Sexual Orientation Not on file COVID-19 Exposure Response Date Recorded In the last month, have you been in contact with someone who was confirmed or suspected to have Coronavirus / COVID-19? No / Unsure 02/17/2020 10:59 AM CUTTER HELPER documented as of this encounter Plan of Treatment Upcoming Encounters Date Type Department Care Team (Late st Contact Info) Description 09/30/2024 8:00 AM CDT Office Visit [facility] Breast Surgery [address] [place] [address] [place] [address] [address] [place] [address] 10/15/2024 8:30 AM CDT Office Visit [facility] Oncology and Hematology - [place] [address] [facility] [address] [place] [address] Francis Rosado MD [address] [facility] [address] [place] [address] documented as of this encounter Visit Diagnoses Not on filedocumented in this encounter Care Teams Puppet Maker Relationship Specialty Start Date End Date Dewayne Shaw MD PCP - General Family Practice 08/16/20 documented as of this encounter
--- OUTSIDE RECORDS SUMMARY | 2024-07-08 00:53 | XMS_ITS | Clinical Summary ---
Author Organization [employer] - [address] [place] [address] Phone Care Team Providers Care Shell Machine Operator Name Role Phone Dewayne Shaw MD Primary Care Provider +1- [phone] Allergies Active Allergy Reactions Criticality Noted Date [...] Cancer Staging:Clinical: cT2, cN3c, cM0, GX, ER+, GA+, HER2- - Signed by Raissa Parrish MD on 06/27/2020 Encounters Date Type Department Care Team Description 05/26/2024 External Device Data STL ABSTRACTION Provider, Abstract 04/28/2024 External Device Data STL ABSTRACTION Provider, Abstract 04/28/2024 External Device Data STL ABSTRACTION Provider, Abstract 04/20/2024 3:30 PM ARTIFICIAL SNOW MAKING MACHINE OPERATOR Office Visit [facility] Oncology and [facility] [address] [place] [address] Francis Rosado MD Malignant neoplasm of overlapping sites of right breast in female, estrogen receptor positive (CMS/HCC) (Primary Dx); Encounter for follow-up surveillance of colon cancer 04/12/2024 Orders Only [facility] Oncology [facility] [address] [place] [address] Francis Rosado MD from Last 3 Months Immunizations Immunization Administration Dates Next Due (PFIZER)(12 YR UP) COVID-19 VACCINE - EMERGENCY USE AUTHORIZATION, MRNA, [id number](PF) 30 MCG/0.3 ML IM SUSP 08/17/2020,07/15/2020 Family History Medical History Relation Name Comments Hypertension Father Gavin Wilson Prostate Cancer Father Gaivn Wilson Colon Cancer Maternal Uncle Hypertension Mother Maxine Ivy Pancreatic Cancer Paternal Grandmother Breast Cancer Paternal [...] on file Legal Sex Female 6:10 AM ARTIFICIAL SNOW MAKING MACHINE OPERATOR Gender Identity Not on file Sexual Orientation Not on file Last Filed Vital Signs Vital Sign Reading Time Taken Comments Blood Pressure 154/89 04/20/2024 3:16 PM ARTIFICIAL SNOW MAKING MACHINE OPERATOR Pulse 112 04/20/2024 3:16 PM ARTIFICIAL SNOW MAKING MACHINE OPERATOR Temperature 36.3 C (97.3 F) 04/20/2024 3:16 PM ARTIFICIAL SNOW MAKING MACHINE OPERATOR Respiratory Rate 14 04/20/2024 3:16 PM ARTIFICIAL SNOW MAKING MACHINE OPERATOR Oxygen Saturation 99% 04/20/2024 3:16 PM ARTIFICIAL SNOW MAKING MACHINE OPERATOR Inhaled Oxygen Concentration - - Weight 82.6 kg (182 lb) 04/20/2024 3:16 PM ARTIFICIAL SNOW MAKING MACHINE OPERATOR Height 162.6 cm (5' 4 ) 09/30/2023 8:06 AM CDT Body Mass Index 31.24 09/30/2023 8:06 AM CDT Plan of Treatment Upcoming Encounters Date Type Department Care Team (Late st Contact Info) Description 09/30/2024 8:00 AM CDT Office Visit [facility] Breast Surgery [address] [facility] [address] [place] [address] [place] [address] [facility] [address] [place] [address] 10/15/2024 8:30 AM CDT Office Visit [facility] Oncology and Hematology - [place] [address] [place] [address] Francis Rosado MD [address] [facility] [address] [place] [address] Health Maintenance Due Date Last Done Comments Pre-Diabetes and Diabetes Screening 1981 DTAP/TDAP/TD VACCINES (1 - Tdap) 2000 HEPATITIS B VACCINES (1 of 3 - 19+ 3-dose series) 2000 HPV/Cotest (21-29) 2002 CERVICAL CANCER SCREENING 09/29/2011 HPV/Cotest (30-65) 09/29/2011 PAP SMEAR 09/29/2011 COVID-19 Vaccine (3 - Pfizer risk series) 09/14/2020 08/17/2020, 07/15/2020 INFLUENZA VACCINE (#1) 2023 HPV VACCINES Aged Out No longer eligi ble based on patient's age to complete this topic Medical Devices Implanted Type Area Wire Coating Machine Operator Device Identifier Shelf Expiration Date Model / Serial / Lot Swing Driver Clip Surgiclip Ii Joshua 9.75in [id number] - [id number] Implanted:Qty: 1 on 07/26/2020 by Raissa Parrish MD at [facility] Clip N/A: Breast [employer] - COVIDIEN 02/06/2025 [id number] / / [id number] Description:Used bilaterally Swing Driver Clip Surgiclip Ii Joshua 9.75in [id number] - [id number] Implanted:Qty: 1 on 07/26/2020 by Raissa Parrish MD at [facility] Clip Right: Breast [employer] - COVIDIEN 11/07/2024 [id number] / / [id number] Hemostatic Surgicel 4x8in 1950 - [id number] Implanted:Qty: 4 on 07/26/2020 by Raissa Parrish MD at [facility] Hemostatic N/A: Breast J[employer]J- [employer] 08/07/20241951 / / [id number] Description:Used in bilatera l breast Hemostatic Surgicel 4x8in 1950 - [id number] Implanted:Qty: 1 on 07/26/2020 by Raissa Parrish MD at [facility] Hemostatic Right: Breast [employer]J- [employer] 10/08/20231951 / / [id number] Explanted Type Area Wire Coating Machine Operator Device Identifier Shelf Expiration Date Model / Serial / Lot Port Powerport Clearvue 8fr Mri [id number] - [id number] Implanted:Qty: 1 on 02/23/2020 by Raissa Parrish MD at [facility] Explanted:Qty: 1 on 11/29/2020 by Raissa Parrish MD at [facility] Port Left: Chest CR BARD- [employer]ASC [employer] 02/06/2021 [id number] / / [id number] Insurance [facility] [employer] CHOICE Advance Directives For more information, please contact: [phone] * Full Code (Latest Code Status on File) Date Activated Date Inactivated Comments 07/26/2020 1:07 PM 07/27/2020 11:27 AM Care Teams Shell Machine Operator Relationship Specialty Start Date End Date Dewayne Shaw MD PCP - General Family Practice 08/16/20
[2024-07-08 06:53] VITALS: BP 119/68; PULSE 130; RESP 18; TEMP 36.1; O2SAT 100
--- NOTE | 2024-07-08 07:23 | WPDANESEPPF ---
Anes - Initial Pre Proc Eval Procedure: Operation Date: 07/08/24 08:00 Proposed Procedures p Screening Colonoscopy - Samy Irizarry MD Date/Time: 07/08/24 07:23 Surgeon: Samy Irizarry MD Pre Op Diagnosis: Family Hx of Polyps Patient Data Age: 43 Gender: F Height: 1.63 m Weight: 81.3 kg Last Vital Signs Temp 97 F L 07/08/24 06:53 Pulse 130 H 07/08/24 06:53 Resp 18 07/08/24 06:53 BP 119/68 07/08/24 06:53 Pulse Ox 100 07/08/24 06:53 O2 Del Method Room Air 07/08/24 06:53 Allergies Allergy/AdvReac Type Severity Reaction Status Date / Time codeine AdvReac Intermediate Nausea and Verified 07/08/24 06:48 Vomiting Penicillins AdvReac Intermediate LEGS NUMB Verified 07/08/24 06:48 Home Medications ?Medication ?Instructions ?Recorded ?Confirmed ?Type anastrozole 1 mg tablet 1 mg PO DAILY 08/17/21 07/08/24 History aspirin 81 mg tablet 81 mg PO DAILY 01/03/22 07/08/24 History glucosamine-chondroitin 250 mg-200 2 tablet PO TID 01/03/22 06/24/24 History mg tablet (Osteo Bi-Flex) multivitamin with minerals-folic 1 tablet PO DAILY 01/03/22 07/08/24 History acid 0.4 mg tablet omega-3 fatty acids-vitamin E 1 cap PO DAILY 01/03/22 07/08/24 History 1,000 mg capsule ergocalciferol (vitamin D2) 1,250 1,250 mcg PO WEEKLY 01/27/24 07/08/24 History mcg (50,000 unit) capsule lisinopril 20 mg tablet 20 mg PO DAILY #90 tabs 06/05/24 07/08/24 Rx Patient hx anesthesia problems: none Family hx anesthesia problems: none Results Review: All pre-operative results and documents have been reviewed as part of the pre-operative evaluation. 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 Malignant neoplasm of unspecified site of right female breast Breast CA Breast calcification, right Abnormal findings on imaging test Enlarged lymph nodes in armpit Hypertension History of cervical cancer Ia1 squamous carcinoma s/p LEEP and cone 2010 and [facility] 2010 Surgical History Surgical History S/P mastectomy, bilateral 07/28 History of delivery x2 History of hysterectomy [facility] 2016 Family History Family History Father Malignant neoplasm of prostate Hypertension Other Carcinoma of colon Maternal Uncle Other Breast cancer Paternal Aunt Grandparent Pancreatic cancer Social History Social History Smoking status: Never smoker Second hand tobacco smoke exposure: No Alcohol intake: never Alcohol use details: rare Substance use: never Substance use type: does not use Lack of Transportation: No Lack of Food: Never True Current Housing: I Have Housing Concerned About Future Housing: No Difficulty Paying Gas/Electric Bills: No Difficulty Paying for Meds: No Currently Unemployed: No Education: Master's Degree or Higher Difficulty w/ Childcare or Family Care: No Living arrangements: with family Occupation/Education: occupation Additional occupation/education comments: Teacher Gender identity (if verbalized by the patient): Female Sexual Orientation (if Verbalized by the Patient): Straight or Heterosexual Spiritual care concerns: No Agree to blood products: Yes Anes - Eval Final PreProcedure Day of Procedure 07/08/24 07:23 Patient weight: overweight Lungs: normal air movement Airway: Mallampati scale class II Neurological: alert and oriented Last oral intake: >/= 8 hours ASA classification: II Emergent: no Anesthetic plan: proceed Anesthesia type and monitoring: general GIVS and standard monitoring Results Review: All pre-operative results and documents have been reviewed as part of the pre-operative evaluation. 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 Pt exerises 5-6 days/week, no cp or sob. Informed Consent: The patient's anesthetic plan and its attendant risks and benefits were discussed with the patient/family/POA. Questions were solicited and answers provided to the satisfaction of the patient/family/POA.
--- NOTE | 2024-07-08 07:25 | SUR.PREOP ---
0700: PT'S HEART RATE 125-130s, B/P 119/68. DR PICKETT NOTIFIED AND SEEING PT, ALSO SAW HEART RATE MONITOR RHYTHM (SINUS TACHYCARDIA). NO NEW ORDERS.
[2024-07-08] MEDS: LACTATED RINGERS 1,000 ML 150 ML IV CONT (07:38)
--- NOTE | 2024-07-08 07:50 | PM.IMHP ---
H&P: [facility] History of Present Illness Date/Time: 07/08/24 07:50 Chief Complaint: Family history of colon polyps Narrative: this patient had breast cancer 3 years ago, and underwent a colonoscopy showing some polyps. More importantly, both her parents have colon polyps, a paternal aunt and her son had colorectal cancer. Review of Systems Review of Systems: All systems reviewed & are unremarkable except as noted in HPI and below [facility] Past Medical History Medical History Mixed hyperlipidemia Asthma, exercise induced COVID-19 Malignant neoplasm of unspecified site of right female breast Breast CA Breast calcification, right Abnormal findings on imaging test Enlarged lymph nodes in armpit Hypertension History of cervical cancer Ia1 squamous carcinoma s/p LEEP and cone 2010 and [facility] 2010 Surgical History Surgical History S/P mastectomy, bilateral 07/28 History of delivery x2 History of hysterectomy [facility] 2016 Family History Family History Father Malignant neoplasm of prostate Hypertension Other Carcinoma of colon Maternal Uncle Other Breast cancer Paternal Aunt Grandparent Pancreatic cancer Social History Social History Smoking status: Never smoker Second hand tobacco smoke exposure: No Alcohol intake: never Alcohol use details: rare Substance use: never Substance use type: does not use Lack of Transportation: No Lack of Food: Never True Current Housing: I Have Housing Concerned About Future Housing: No Difficulty Paying Gas/Electric Bills: No Difficulty Paying for Meds: No Currently Unemployed: No Education: Master's Degree or Higher Difficulty w/ Childcare or Family Care: No Living arrangements: with family Occupation/Education: occupation Additional occupation/education comments: Teacher Gender identity (if verbalized by the patient): Female Sexual Orientation (if Verbalized by the Patient): Straight or Heterosexual Spiritual care concerns: No Agree to blood products: Yes Meds Home Medications and Allergies Home Medications ?Medication ?Instructions ?Recorded ?Confirmed ?Type anastrozole 1 mg tablet 1 mg PO DAILY 08/17/21 07/08/24 History aspirin 81 mg tablet 81 mg PO DAILY 01/03/22 07/08/24 History glucosamine-chondroitin 250 mg-200 2 tablet PO TID 01/03/22 06/24/24 History mg tablet (Osteo Bi-Flex) multivitamin with minerals-folic 1 tablet PO DAILY 01/03/22 07/08/24 History acid 0.4 mg tablet omega-3 fatty acids-vitamin E 1 cap PO DAILY 01/03/22 07/08/24 History 1,000 mg capsule ergocalciferol (vitamin D2) 1,250 1,250 mcg PO WEEKLY 01/27/24 07/08/24 History mcg (50,000 unit) capsule lisinopril 20 mg tablet 20 mg PO DAILY #90 tabs 06/05/24 07/08/24 Rx Allergies Allergy/AdvReac Type Severity Reaction Status Date / Time codeine AdvReac Intermediate Nausea and Verified 07/08/24 06:48 Vomiting Penicillins AdvReac Intermediate LEGS NUMB Verified 07/08/24 06:48 Vital Signs Vital Signs - 24 hr 07/08/24 06:53 Temperature 97 F L Pulse Rate 130 H Respiratory Rate 18 Blood Pressure 119/68 Pulse Oximetry 100 Oxygen Delivery Room Air Exam Const: General: cooperative and healthy appearing Resp: Effort & Inspection: normal respiratory effort and able to speak in complete sentences Auscultation: clear to auscultation bilaterally Cardio: Rate: regular rate Rhythm: regular rhythm GI: Inspection: normal to inspection GI Palp: No No hepatosplenomegaly present Auscultation: normal bowel sounds Rectal Exam: deferred Skin: General skin exam: normal color Psych: Appearance: grossly normal Mental Status: mental status grossly normal Assessment and Plan Assessment and plan (1) Family history of colonic polyps: Code(s): Z83.71 - Family history of colonic polyps Status: Acute Assessment and Plan: The patient is deemed a good candidate for the procedure. Consent signed. Will proceed.
[2024-07-08 08:18] VITALS: BP 122/71; PULSE 109; RESP 17; O2SAT 100
[2024-07-08 08:28] VITALS: BP 118/77; PULSE 88; RESP 18; O2SAT 100
[2024-07-08 08:38] VITALS: BP 119/78; PULSE 87; RESP 14; O2SAT 100
== END 2024-07-08 08:45 | disposition home or self-care (01) ==
PROVIDERS: PCP Family Medicine Adolescent Medicine; Referring Provider Internal Medicine Hematology & Oncology; Visit Provider Internal Medicine Gastroenterology
PROC: 0DJD8ZZ Inspection of Lower Intestinal Tract, Via Natural or Artificial Opening Endoscopic (ICD-10-PCS; CPT 45378; principal; 2024-07-08 08:00)
DX: Z12.11 Encounter for screening for malignant neoplasm of colon (principal); I10 Essential (primary) hypertension; E78.2 Mixed hyperlipidemia; J45.909 Unspecified asthma, uncomplicated; Z79.82 Long term (current) use of aspirin; Z98.890 Other specified postprocedural states; Z90.13 Acquired absence of bilateral breasts and nipples; Z86.0100 Personal history of colon polyps, unspecified; Z85.3 Personal history of malignant neoplasm of breast; Z85.41 Personal history of malignant neoplasm of cervix uteri; Z83.719 Family history of colon polyps, unspecified; Z80.3 Family history of malignant neoplasm of breast; Z80.42 Family history of malignant neoplasm of prostate; Z80.0 Family history of malignant neoplasm of digestive organs
CPT/HCPCS: 45378; J2003; J2704; J7120

== ENCOUNTER 2024-10-05 09:00 | Outpatient (CLI) | payer BC, SELFPAY ==
--- OUTSIDE RECORDS SUMMARY | 2024-10-05 09:13 | XMS_ITS | Clinical Summary ---
Author Organization [employer] [address] - [address]22 [address] [facility] [address] [place] [address] Phone Care Team Providers Care Addiction Nurse Name Role Phone Dewayne Shaw MD Primary Care Provider +1- [phone] Allergies Active Allergy Reactions Criticality Noted Date [...] mouth daily. 90 Tablet 3 12/15/2023 Active ferrous fumarate 89 mg (29 mg iron) Tablet 89 mg. 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 Oncology and Hematology [facility] [address] [place] [address] Francis Rosado MD from Last 3 Months Immunizations Immunization Administration Dates Next Due (Monscierge)(12 YR UP) COVID-19 VACCINE - EMERGENCY USE AUTHORIZATION, MRNA, [id number](PF) 30 MCG/0.3 ML IM SUSP 08/17/2020,07/15/2020 Family History Medical History Relation Name Comments High Cholesterol Father Gavin Wilson Hypertension Father Gavin Wilson Prostate Cancer Father Gavin Wilson Colon Cancer Maternal Uncle 1 Colon Cancer Maternal Uncle 2 Kamari Sharma High Cholesterol Mother Maxine Ivy Hypertension Mother Maxine Ivy Breast Cancer Paternal Aunt 1 Vivian Diaz Diagnosed at age 45 Breast Cancer Paternal Aunt 2 Vivian Diaz Pancreatic Cancer Paternal Grandmother Bindu Wilson Breast Cancer Paternal Uncle Relation Name Status Comments Father Gavin Wilson Alive Maternal Uncle 1 Maternal Uncle 2 Kamari Sharma Alive Mother Maxine Ivy Alive Paternal Aunt 1 Vivian Diaz Alive Paternal Aunt 2 Vivian Diaz Alive Paternal Grandmother Bindu Wilson Alive Paternal Uncle Social History Tobacco Use Types Packs/Day Years Used Date Smoking Tobacco: Never Smokeless Tobacco: Never Tobacco Cessation:Counseling Given: Not Answered Alcohol Use Standard Drinks/Week Comments Never 0 (1 standard drink = 0.6 oz pur e alcohol) Comments No Sex and Gender Information Value Date Recorded Sex Assigned at Not on file Legal Sex Female 6:10 AM FIBER PICKER Gender Identity Not on file Sexual Orientation Not on file Last Filed Vital Signs Vital Sign Reading Time Taken Comments Blood Pressure 118/72 09/30/2024 7:59 AM CDT Pulse 112 04/20/2024 3:16 PM FIBER PICKER Temperature 36.3 C (97.3 F) 04/20/2024 3:16 PM FIBER PICKER Respiratory Rate 14 04/20/2024 3:16 PM FIBER PICKER Oxygen Saturation 99% 04/20/2024 3:16 PM FIBER PICKER Inhaled Oxygen Concentration - - Weight 85.3 kg (188 lb) 09/30/2024 7:59 AM CDT Height 162.6 cm (5' 4) 09/30/2024 7:59 AM CDT Body Mass Index 32.27 09/30/2024 7:59 AM CDT Plan of Treatment Upcoming Encounters Date Type Department Care Team (Late st Contact Info) Description 10/15/2024 8:30 AM CDT Office Visit [facility] Oncology and Hematology - [place] [address] [place] [address] Francis Rosado MD [address] [facility] [address] [place] [address] 10/04/2025 8:00 AM CDT Office Visit [facility] Breast Surgery Maytedyllan Kimbrough [address] [facility] [address] [place] [address] [place] [address] [facility] [address] [place] [address] Health Maintenance Due Date Last Done Comments Pre-Diabetes and Diabetes Screening 1981 DTAP/TDAP/TD VACCINES (1 - Tdap) 2000 HEPATITIS B VACCINES (1 of 3 - 19+ 3-dose series) 2000 HPV/Cotest (21-29) 2002 CERVICAL CANCER SCREENING 09/29/2011 HPV/Cotest (30-65) 09/29/2011 PAP SMEAR 09/29/2011 COVID-19 Vaccine (3 - Pfizer risk series) 09/14/2020 08/17/2020, 07/15/2020 Preventative Visit- Commercial 03/10/2024 INFLUENZA VACCINE (#1) 2024 HPV VACCINES Aged Out No longer eligi ble based on patient's age to complete this topic Medical Devices Implanted Type Area Rail Transit Operator Device Identifier Shelf Expiration Date Model / Serial / Lot Convention Worker Clip Surgiclip Ii Joshua 9.75in [id number] - [id number] Implanted:Qty: 1 on 07/26/2020 by Raissa Parrish MD at [facility] Clip N/A: Breast [employer] - COVIDIEN 02/06/2025 [id number] / / [id number] Description:Used bilaterally Convention Worker Clip Surgiclip Ii Joshua 9.75in [id number] - [id number] Implanted:Qty: 1 on 07/26/2020 by Raissa Parrish MD at [facility] Clip Right: Breast [employer] - COVIDIEN 11/07/2024 [id number] / / [id number] Hemostatic Surgicel 4x8in 1950 [id number] Implanted:Qty: 4 on 07/26/2020 by Raissa Parrish MD at [facility] Hemostatic N/A: Breast J&J- [employer] 08/07/20241951 / / [id number] Description:Used in bilatera l breast Hemostatic Surgicel 4x8in 1950 - [id number] Implanted:Qty: 1 on 07/26/2020 by Raissa Parrish MD at [facility] Hemostatic Right: Breast J&J- [employer] 10/08/20231951 / / [id number] Explanted Type Area Rail Transit Operator Device Identifier Shelf Expiration Date Model / Serial / Lot Port Powerport Clearvue 8fr Mri [id number] - [id number] Implanted:Qty: 1 on 02/23/2020 by Raissa Parrish MD at [facility] Explanted:Qty: 1 on 11/29/2020 by Raissa Parrish MD at [facility] Port Left: Chest CR BARD- [employer] 02/06/2021 [id number] / / [id number] Insurance [facility] [employer] CHOICE [facility] [employer] CHOICE Advance Directives For more information, please contact: [phone] * Full Code (Latest Code Status on File) Date Activated Date Inactivated Comments 07/26/2020 1:07 PM 07/27/2020 11:27 AM Care Teams Addiction Nurse Relationship Specialty Start Date End Date Dewayne Shaw MD PCP - General Family Practice 08/16/20
--- OUTSIDE RECORDS SUMMARY | 2024-10-05 09:13 | XMS_ITS | Encounter Summary ---
Author Organization [facility] Address [address] [place] [address] Care Team Providers Care Forensic Psychiatrist Name Role Phone Dewayne Shaw MD Primary Care Provider +1- [phone] Encounter Details Date Type Department Care Team ([facility] Contact Info) Description 02/16/2020 Chart Note [facility] Rad[facility] Therapy [address] [place] [address] [place] [address] [place] [address] Social History Tobacco Use Types Packs/Day Years Used Date Smoking Tobacco: Never Smokeless Tobacco: Never Alcohol Use Standard Drinks/Week Comments Yes 0 (1 standard drink = 0.6 oz pur e alcohol) Comments No Sex and Gender Information Value Date Recorded Sex Assigned at Not on file Legal Sex Female 6:10 AM CERTIFIED ORTHOTIST/PEDORTHIST Gender Identity Not on file Sexual Orientation Not on file COVID-19 Exposure Response Date Recorded In the last month, have you been in contact with someone who was confirmed or suspected to have Coronavirus / COVID-19? No / Unsure 02/17/2020 10:59 AM CERTIFIED ORTHOTIST/PEDORTHIST documented as of this encounter Plan of Treatment Upcoming Encounters Date Type Department Care Team (Late Contact Info) Description 10/15/2024 8:30 AM CDT Office Visit [facility] Oncology and Hematology - [place] [address] [place] [address] Francis Rosado MD [address] [facility] [address] [place] [address] 10/04/2025 8:00 AM CDT Office Visit [facility] Breast Surgery Mayte Kimbrough [address] [facility] [address] [place] [address] [place] [address] [address] [facility] [address] [place] [address] documented as of this encounter Visit Diagnoses Not on filedocumented in this encounter Care Teams Forensic Psychiatrist Relationship Specialty Start Date End Date Dewayne Shaw MD PCP - General Family Practice 08/16/20 documented as of this encounter
[2024-10-05 09:23] LABS: Hematocrit 38.5 % (37.0-47.0); Hemoglobin 12.8 g/dL (12.0-15.0); Immature Granulocyte Percent A 1.0 % (0-0.5); Lymphocytes Absolute Auto 2.72 K/mm3 (0.9-3.2); Mean Corpuscular HGB Conc 33.2 g/dl (32-36); Mean Corpuscular Hemoglobin 29.8 pg (26-34); Mean Corpuscular Volume 89.7 fl (80-100); Nucleated Red Blood Cells Absolute Auto 0.000 K/mm3 (0.0-0.012); Nucleated Red Blood Cells Perc 0.0 % (0.0-0.2); Platelet Count Result 281 k/mm3 (150-375); Red Blood Count 4.29 M/mm3 (4.2-5.4); White Blood Count 9.1 K/mm3 (4.5-10.0)
[2024-10-05 09:48] LABS: Alanine Aminotransferase 56 U/L (6-35); Albumin Level 4.8 g/dL (3.5-5.1); Alkaline Phosphatase 65 U/L (38-126); Anion Gap 13 mmol/L (4-12); Aspartate Amino Transferase 77 U/L (14-36); Bilirubin,Total 0.4 mg/dL (0.2-1.3); Blood Urea Nitrogen 10 mg/dL (7-17); Calcium 9.9 mg/dL (8.4-10.2); Carbon Dioxide 23 mmol/L (22-30); Chloride 102 mmol/L (98-107); Cholesterol 255 mg/dL (0-200); Estimated Glomerular Filt Rate > 60; Glucose 112 mg/dL (65-110); HDL Direct 39 mg/dL; Potassium 4.3 mmol/L (3.4-5.0); Sodium 138 mmol/L (137-145); Total Protein 8.5 g/dL (6.3-8.2); Triglycerides 485 mg/dL (<150)
[2024-10-05 09:51] LABS: Hemoglobin A1C 5.7 % (<5.7)
== END 2024-10-05 09:01 | disposition home or self-care (01) ==
PROVIDERS: PCP Family Medicine Adolescent Medicine; Referring Provider Obstetrics & Gynecology Gynecology; Visit Provider Internal Medicine Hematology & Oncology
DX: C50.811 Malignant neoplasm of overlapping sites of right female breast (principal); Z17.0 Estrogen receptor positive status [ER+]; E55.9 Vitamin D deficiency, unspecified; Z01.419 Encounter for gynecological examination (general) (routine) without abnormal findings
CPT/HCPCS: 36415; 80053; 80061; 82306; 83036; 85025; 86300

== ENCOUNTER 2024-11-10 08:08 | Emergency (ER) | payer BC, SELFPAY ==
--- OUTSIDE RECORDS SUMMARY | 2005-11-24 19:00 | XMS_ITS | Continuity of Care Document ---
Author Organization [facility] Address [address] [place] [address] Phone Care Team Providers Care Cad Administrator Name Role Phone Charanjit Cordero MD Unavailable Unavailable Advance Directives Directive Yes / No Effective Date File Name No Information Encounters Encounter Description Practice Location Reason(s) For Visit Diagnoses Date Provider Providers Copied on Encounter [facility], [id number] [place] [address], [id number], tel:[phone] [facility] No Information Gil Donohue. [address], [id number], . 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 [address], [id number], . tel:[phone] Family History Family Member Type Diagnosis Age At Onset No Information Payers Payer name Insurance type Covered green party ID Authoriza tion(s) No Information Social History Type Description Quantity Date Captured Comments Sex Female Smoking Status No Information Chief Complaint And Reason For Visit No Information Reason For Referral Reason For Referral No Information History Of Present Illness Encounter Date Complaint History Of Prese nt Illness No Information Functional Status Date Functional Assessmen t No Information Instructions Date Instruction Additional Infor mation No Information Assessments Type Assessment Date No Information Patient Care Teams Name Effective Dates (start - stop) Status Members No Information
[2024-11-10 08:15] VITALS: BP 147/84; PULSE 115; RESP 16; TEMP 36.4; O2SAT 100
--- OUTSIDE RECORDS SUMMARY | 2024-11-10 08:18 | XMS_ITS | Clinical Summary ---
Author Organization [employer] [address] - 2022 Address [address] [facility] 3[address] [place] [address] Phone Care Team Providers Care Planning Technician Name Role Phone Dewayne Shaw MD Primary Care Provider +1- [phone] Allergies Active Allergy Reactions Criticality Noted Date [...] Cancer Staging:Clinical: cT2, cN3c, cM0, GX, ER+, [place]+, HER2- - Signed by Raissa Parrish MD on 06/27/2020 Encounters Date Type Department Care Team Description 10/27/2024 External Device Data STL ABSTRACTION Provider, Abstract 10/26/2024 External Device Data STL ABSTRACTION Provider, Abstract 10/15/2024 8:30 AM CDT Office Visit [facility] Oncology and [facility] [address] [place] [address] Francis Rosado MD Malignant neoplasm of overlapping sites of right breast in female, estrogen receptor positive (CMS/HCC) (Primary Dx) 10/13/2024 External Device Data STL ABSTRACTION Provider, Abstract 10/06/2024 Orders Only [facility] Oncology [facility] [address] [place] [address] Francis Rosado MD 09/30/2024 8:00 AM CDT Office Visit [facility] Breast Surgery Mayte Kimbrough [address] [place] [address] Raissa Parrish MD Monoallelic mutation of [...] Months Immunizations Immunization Administration Dates Next Due (LiveMinutes)(12 YR UP) COVID-19 VACCINE - EMERGENCY USE AUTHORIZATION, MRNA, [id number](PF) 30 MCG/0.3 ML IM SUSP 08/17/2020,07/15/2020 Family [...] 45 Breast Cancer Paternal Aunt 2 Vivian Wilson- Rericha Pancreatic Cancer Paternal Grandmother Bindu Wilson Breast Cancer Paternal Uncle Relation Name Status Comments Father Gavin Wilson Alive Maternal Uncle 1 Maternal Uncle 2 Kamari Sharma Alive Mother Maxine Ivy Alive Paternal Aunt 1 Vivian Diaz Alive Paternal Aunt 2 Vivian Wilson- Joe Alive Paternal Grandmother Bindu Wilsno Alive Paternal Uncle Social History Tobacco Use Types Packs/Day Years Used Date Smoking Tobacco: Never Smokeless Tobacco: Never Alcohol Use Standard Drinks/Week Comments Never 0 (1 standard drink = 0.6 oz pur e alcohol) Feeling Safe Answer Date Recorded Fear of Current or Ex-Partner Not on file Emotionally Abused Not on file 09/30/2023 Within the last year, have y ou been kicked, hit, slapped, or otherwise physically hurt by your partner or ex-partner? No 09/30/2023 Sexually Abused Not on file 09/30/2023 Feeling Safe Answer Date Recorded Do you worry about feeling s afe and happy with the people in your life? No 09/30/2024 Comments No Sex and Gender Information Value Date Recorded Sex Assigned at Not on file Legal Sex Female 6:10 AM SHINGLE SAWYER Gender Identity Not on file Sexual Orientation Not on file Last Filed Vital Signs Vital Sign Reading Time Taken Comments Blood Pressure 140/95 10/15/2024 8:37 AM CDT Pulse 131 10/15/2024 8:35 AM CDT Temperature 36.7 C (98 F) 10/15/2024 8:35 AM CDT Respiratory Rate 15 10/15/2024 8:35 AM CDT Oxygen Saturation 98% 10/15/2024 8:35 AM CDT Inhaled Oxygen Concentration - - Weight 82.8 kg (182 lb 9.6 oz) 10/15/2024 8:35 A M CDT Height 162.6 cm (5' 4) 09/30/2024 7:59 AM CDT Body Mass Index 31.34 09/30/2024 7:59 AM CDT Plan of Treatment Upcoming Encounters Date Type Department Care Team (Late st Contact Info) Description 01/27/2025 3:30 PM SHINGLE SAWYER Office Visit [facility] Oncology and Hematology - [place] [address] [facility] [address] [place] [address] Francis Rosado MD [address] [facility] [address] [place] [address] 10/04/2025 8:00 AM CDT Office Visit [facility] Breast Surgery Mayte Kimbrough [address] [facility] [address] [place] [address] [place] [address] [address] [place] [address] Health Maintenance Due Date Last Done Comments Pre-Diabetes and Diabetes Screening 1981 DTAP/TDAP/TD VACCINES (1 - Tdap) 2000 HEPATITIS B VACCINES (1 of 3 - 19+ 3-dose series) 2000 HPV/Cotest (21-29) 2002 HPV VACCINES (1 - Risk 3-dose SCDM series) 2008 CERVICAL CANCER SCREENING 09/29/2011 HPV/Cotest (30-65) 09/29/2011 PAP SMEAR 09/29/2011 COVID-19 Vaccine (3 - Pfizer risk series) 09/14/2020 08/17/2020, 07/15/2020 INFLUENZA VACCINE (#1) 2024 Medical Devices Implanted Type Area C Software Developer Device Identifier Shelf Expiration Date Model / Serial / Lot Lunchroom Aide Clip Surgiclip Ii Joshua 9.75in [id number] - [id number] Implanted:Qty: 1 on 07/26/2020 by Raissa Parrish MD at [facility] Clip N/A: Breast [employer] - COVIDIEN 02/06/2025 [id number] / / [id number] Description:Used bilaterally Lunchroom Aide Clip Surgiclip Ii Joshua 9.75in [id number] - [id number] Implanted:Qty: 1 on 07/26/2020 by Raissa Parrish MD at [facility] Clip Right: Breast [employer] - COVIDIEN 11/07/2024 [id number] / / [id number] Hemostatic Surgicel 4x8in 1950 - [id number] Implanted:Qty: 4 on 07/26/2020 by Raissa Parrish MD at [facility] Hemostatic N/A: Breast J&J- ETH[employer] 08/07/20241950 / / [id number] Description:Used in bilatera l breast Hemostatic Surgicel 4x8in 1950 - [id number] Implanted:Qty: 1 on 07/26/2020 by Raissa Parrish MD at [facility] Hemostatic Right: Breast J&J- [employer] 10/08/20231951 / / [id number] Explanted Type Area C Software Developer Device Identifier Shelf Expiration Date Model / Serial / Lot Port Powerport Clearvue 8fr Mri [id number] - [id number] Implanted:Qty: 1 on 02/23/2020 by Raissa Parrish MD at [facility] Explanted:Qty: 1 on 11/29/2020 by Raissa Parrish MD at [facility] Port Left: Chest CR BARD- [employer] 02/06/2021 [id number] / / [id number] Procedures Procedure Name Priority Date/Time Associated Diagnosis Comments CHG CA 15 3 Routine 10/05/2024 1:57 PM CDT COMPREHENSIVE METABOLIC PANEL Routine 10/05/2024 12:37 PM CDT from Last 3 Months Results * CHG CA 15 3 (10/05/2024 1:57 PM CDT) us Francis Rosado MD CHG - LABORATORY Final Result * COMPREHENSIVE METABOLIC PANEL (10/05/2024 12:37 PM CDT) Blood Francis Rosado MD CHEMISTRY ORDERABLES Final Resu lt from Last 3 Months Insurance [facility] [employer] [facility] [employer] CHOICE Advance Directives For more information, please contact: [phone] * Full Code (Latest Code Status on File) Date Activated Date Inactivated Comments 07/26/2020 1:07 PM 07/27/2020 11:27 AM Care Teams Planning Technician Relationship Specialty Start Date End Date Dewayne Shaw MD PCP - General Family Practice 08/16/20
--- OUTSIDE RECORDS SUMMARY | 2024-11-10 08:18 | XMS_ITS | Encounter Summary ---
Author Organization [facility] Address [address] [place] [address] Care Team Providers Care Charm Filter Operator Helper Name Role Phone Dewayne Shaw MD Primary Care Provider +1- [phone] Encounter Details Date Type Department Care Team (Late Contact Info) Description 02/16/2020 Chart Note [facility] Rad[facility] [address] [place] [address] [place] [address] [place] [address] Social History Tobacco Use Types Packs/Day Years Used Date Smoking Tobacco: Never Smokeless Tobacco: Never Alcohol Use Standard Drinks/Week Comments Yes 0 (1 standard drink = 0.6 oz pur e alcohol) Comments No Sex and Gender Information Value Date Recorded Sex Assigned at Not on file Legal Sex Female 6:10 AM PIANOS AND ORGANS SALESPERSON Gender Identity Not on file Sexual Orientation Not on file COVID-19 Exposure Response Date Recorded In the last month, have you been in contact with someone who was confirmed or suspected to have Coronavirus / COVID-19? No / Unsure 02/17/2020 10:59 AM PIANOS AND ORGANS SALESPERSON documented as of this encounter Plan of Treatment Upcoming Encounters Date Type Department Care Team (Late Contact Info) Description 01/27/2025 3:30 PM PIANOS AND ORGANS SALESPERSON Office Visit [facility] Oncology and Hematology - [place] [address] [facility] [address] [place] [address] Francis Rosado MD [address] [address] 10/04/2025 8:00 AM CDT Office Visit [facility] Breast Surgery Mayte Kimbrough [address] [facility] [address] [place] [address] [place] [address] [address] [facility] [address] [place] [address] documented as of this encounter Visit Diagnoses Not on filedocumented in this encounter Care Teams Charm Filter Operator Helper Relationship Specialty Start Date End Date Dewayne Shaw MD PCP - General Family Practice 08/16/20 documented as of this encounter
[2024-11-10 08:33] LABS: EDSTREPNEGPOS1 Negative (Negative)
--- NOTE | 2024-11-10 08:40 | ED_ITS ---
HPI - URI/Sore Throat General Chief Complaint: Upper Respiratory Infection Stated Complaint: strep throat Time Seen by Provider: 11/10/24 08:30 Source: patient Mode of arrival: ambulatory Limitations: no limitations History of Present Illness HPI Narrative: 44-year-old female presents with complaint of sore throat, headache, fatigue starting yesterday. Patient reports that her daughter was recently diagnosed w ith strep throat. Denies nausea vomiting. Taking ibuprofen for pain. All systems reviewed and negative except as noted above. Related Data Home Medications ?Medication ?Instructions ?Recorded ?Confirmed ?Last Taken ?Type anastrozole 1 mg tablet 1 mg PO DAILY 08/17/2107/0807/07/24 History multivitamin with minerals-folic 1 tablet PO DAILY 07/08/24 07/07/24 History acid 0.4 mg tablet omega-3 fatty acids-vitamin E 1 cap PO DAILY 01/03/22 07/08/24 07/07/24 History 1,000 mg capsule ergocalciferol (vitamin D2) 1,250 1,250 mcg PO WEEKLY 01/27/24 07/08/24 07/07/24 History mcg (50,000 unit) capsule ferrous sulfate 325 mg (65 mg 325 mg PO DAILY 11/10/24 11/10/24 Unknown History iron) tablet (Feosol) Allergies Allergy/AdvReac Type Severity Reaction Status Date / Time codeine AdvReac Intermediate Nausea and Verified 11/10/24 08:20 Vomiting Penicillins AdvReac Intermediate LEGS NUMB Verified 11/10/24 08:20 [facility] Past Medical History Medical History Mixed hyperlipidemia Asthma, exercise induced COVID-19 Malignant neoplasm of unspecified site of right female breast Breast CA Breast calcification, right Abnormal findings on imaging test Enlarged lymph nodes in armpit Hypertension History of cervical cancer Ia1 squamous carcinoma s/p LEEP and cone 2010 and [facility]- 2010 Surgical History Surgical History S/P mastectomy, bilateral 07/28 History of delivery x2 History of hysterectomy [facility]- 2016 Family History Family History Father Malignant neoplasm of prostate Hypertension Other Carcinoma of colon Maternal Uncle Other Breast cancer Paternal Aunt Grandparent Pancreatic cancer Social History Social History Smoking status: Never smoker Second hand tobacco smoke exposure: No Alcohol intake: never Alcohol use details: rare Substance use: never Substance use type: does not use Lack of Transportation: No Lack of Food: Never True Current Housing: I Have Housing Concerned About Future Housing: No Difficulty Paying Gas/Electric Bills: No Difficulty Paying for Meds: No Currently Unemployed: No Education: Master's Degree or Higher Difficulty w/ Childcare or Family Care: No Living arrangements: with family Occupation/Education: occupation Additional occupation/education comments: Teacher Gender identity (if verbalized by the patient): Female Sexual Orientation (if Verbalized by the Patient): Straight or Heterosexual Spiritual care concerns: No Agree to blood products: Yes Comments At time of signature, agree with nursing past medical, surgical, social and family history. There is no relevant family history pertinent to the presenting complaint. Exam Narrative: GENERAL: This is a well-nourished, well-developed patient, in no apparent distress. HEAD: normocephalic, atraumatic. EYES: PERRL. Sclera clear/white. Vision is grossly intact. EARS: External ears normal, auditory canals clear and without drainage, TMs normal without perforation. Hearing grossly intact. NOSE: External nose normal with no obvious nasal discharge, nares without redness, no rhinorrhea. THROAT: Mucous membranes moist, Posterior pharynx is erythematous with mild swelling. No exudates. NECK: Neck supple, non-tender without lymphadenopathy, masses or thyromegaly. CARDIOVASCULAR: Regular rate and rhythm without murmurs, gallops, or rubs. RESPIRATORY: Clear to auscultation. Breath sounds equal bilaterally. No wheezes, rales, or rhonchi. SKIN: warm, Dry, intact with no suspicious lesions or rash, good texture and turgor. NEURO: awake, alert, and oriented to person, place and time. There were no obvious focal neurologic abnormalities. EXTREMITIES: No joint tenderness, effusion, or edema noted. Course Course Level of Care: Express Care Visit Vital Signs Vital signs: Vital Signs Temperature 36.4 C 11/10/24 08:15 Pulse Rate 115 H 11/10/24 08:15 Respiratory Rate 16 11/10/24 08:15 Blood Pressure 147/84 H 11/10/24 08:15 Pulse Oximetry 100 11/10/24 08:15 Oxygen Delivery Room Air 11/10/24 08:15 Temperature 36.4 C 11/10/24 08:15 Pulse Rate 115 H 11/10/24 08:15 Respiratory Rate 16 11/10/24 08:15 Blood Pressure 147/84 H 11/10/24 08:15 Pulse Oximetry 100 11/10/24 08:15 Oxygen Delivery Room Air 11/10/24 08:15 Reviewed MDM - URI/Sore Throat MDM Narrative Medical decision making narrative: negative rapid strep. Strep culture ordered. Will treat patient for strep throat with antibiotic due to patient's symptoms and strep throat exposure. Patient agrees with plan of care. Patient is alert, nontoxic. Differential Diagnosis Differential diagnosis: Likely upper respiratory infection, sinusitis, viral infection and pharyngitis Lab Data Labs: Lab Results 11/10/24 Range/Units 08:17 POC Grp A Strep Screen Negative (Negative) Discharge Plan Discharge Clinical Impression: Strep throat, Exposure to strep throat Patient Disposition: Home Condition: Stable Instructions: Antibiotic Form, Strep Throat (ED) Additional Instructions: Strep test was negative today. Due to your symptoms and recent exposure to strep throat I am treating you with an antibiotic today. take antibiotic as prescribed until gone. Change toothbrush after taking antibiotic for 24 hours. Take Tylenol or ibuprofen every 6-8 hours as needed for pain. Drink at least 64 oz of water a day. See your doctor if not improving. Patient Language: Somali Prescriptions: New azithromycin 250 mg tablet See Rx Instructions .ROUTE .COMPLEX Qty: 6 0RF Rx Instructions: For 250 mg dose pack: take 500 mg today (day 1), then 250 mg for 4 days (days 2-5) No Action anastrozole 1 mg tablet 1 mg PO DAILY Patient Comments: . ergocalciferol (vitamin D2) 1,250 mcg (50,000 unit) capsule 1,250 mcg PO WEEKLY Patient Comments: Friday ferrous sulfate [Feosol] 325 mg (65 mg iron) tablet 325 mg PO DAILY Fish Oil 1,000 mg Capsule 1 cap PO DAILY multivit with min-folic acid [Adult One Daily Multivitamin] 0.4 mg Tablet 1 tablet PO DAILY lisinopril 20 mg tablet See Rx Instructions .ROUTE .COMPLEX Qty: 90 0RF Dose Instruction: TAKE 1 TABLET BY MOUTH EVERY DAY Rx Instructions: TAKE 1 TABLET BY MOUTH EVERY DAY Follow-up/Referrals: Jennifer Price RD, LDN [Primary Care Provider, Nursing] Time of Disposition: 08:38
== END 2024-11-10 08:40 | disposition home or self-care (01) ==
PROVIDERS: Emergency Provider Nurse Practitioner Family
DX: J02.0 Streptococcal pharyngitis (principal); E78.2 Mixed hyperlipidemia; I10 Essential (primary) hypertension; Z85.3 Personal history of malignant neoplasm of breast
CPT/HCPCS: 87081; 87880; 99213; G0463

== ENCOUNTER 2025-02-24 15:09 | Outpatient (CLI) | payer BC, SELFPAY ==
--- NOTE | ~2025-02-24 | CT_ITS ---
CT abdomen pelvis wo con INDICATION:Abnormal levels of other serum enzymes, LUQ pain . COMPARISON: None. TECHNIQUE: Axial 2.5 mm images of the abdomen were obtained without IV or oral contrast. Diagnostic sensitivity is limited due to lack of IV contrast. FINDINGS: The lung bases are clear. Fatty infiltration of the liver is noted. Enlarged lymph node measures 21 cm. No intrahepatic mass or ductal dilatation is evident. The gallbladder is unremarkable. The pancreas and spleen are normal in appearance. The adrenal glands are symmetric in size. The kidneys are unremarkable. 5.5 mm stone within the left kidney. There is no hydronephrosis. Evaluation of the stomach and bowel loops are limited due to lack of oral contrast. There are no bowel obstruction or acute appendicitis. There is no pneumatosis. The bladder and rectum are normal. No free intraperitoneal fluid or air is evident. There is no significant retroperitoneal lymphadenopathy. The aorta, visceral vessels and renal arteries demonstrate normal caliber. The lower thoracic and lumbar vertebrae are in normal alignment. IMPRESSION: No acute abnormality is noted in the abdomen and pelvis. No evidence of metastatic disease. All CT scans at this facility are performed using low dose modulation techniques as appropriate to perform exam including the following: automated exposure control; use of iterative reconstruction technique; adjustment of the mA and/or kV according to patient size (this includes techniques or standardized protocols for targeted exams where dose is matched to indication/reason for exam). Reviewed, dictated and finalized at location S. [employer] MANAGER IMPRESSION: No acute abnormality is noted in the abdomen and pelvis. No evidence of metastatic disease. All CT scans at this facility are performed using low dose modulation techniqu es as appropriate to perform exam including the following: automated exposure c ontrol; use of iterative reconstruction technique; adjustment of the mA and/or kV according to patient size (this includes techniques or standardized protocol s for targeted exams where dose is matched to indication/reason for exam).
[2025-02-24 15:28] LABS: Estimated Glomerular Filt Rate > 60
== END 2025-02-24 15:10 | disposition home or self-care (01) ==
LOC: MICIMG 15:10
PROVIDERS: PCP Nurse Practitioner Family; Visit Provider Nurse Practitioner Family
DX: R74.8 Abnormal levels of other serum enzymes (principal); R10.12 Left upper quadrant pain
CPT/HCPCS: 74176

== ENCOUNTER 2025-02-24 15:12 | Outpatient (CLI) | payer BC, SELFPAY ==
--- NOTE | ~2025-02-24 | CT_ITS ---
EXAMINATION:CT diagnostic chest w con DATE: 02/24/2025 15:41 INDICATION: Right breast malignancy TECHNIQUE: Computed tomography (CT) of the chest was performed without intravenous contrast. The dose-length product (DLP) was 365.47 mGy-cm. COMPARISON: None. FINDINGS: The lungs are clear with no suspicious nodules or masses. Mediastinal structures also appear normal with no mediastinal or hilar lymphadenopathy or masses. Heart and great vessels appear normal. Airways appear patent. Mild degenerative changes in the thoracic spine. No aggressive bony lesions seen. No acute process seen in the visualized portions of the upper abdomen or extrathoracic soft tissues. Patient appears to be status post bilateral mastectomy. IMPRESSION: No gross evidence of recurrent or metastatic disease seen within the chest. Reviewed, dictated and finalized at location A. [employer] HISTORY
== END 2025-02-24 15:13 | disposition home or self-care (01) ==
LOC: MICIMG 15:12
PROVIDERS: PCP Internal Medicine Hematology & Oncology; Visit Provider Internal Medicine Hematology & Oncology
DX: C50.811 Malignant neoplasm of overlapping sites of right female breast (principal); Z17.0 Estrogen receptor positive status [ER+]
CPT/HCPCS: 71260; Q9967